=== PATIENT | female | born 1960 | race Two or more races ===

== ENCOUNTER → 2020-06-18 | Outpatient (CLI) | payer OTHER ==
[~2020-06-18] MED LIST: IOHEXOL 300 MG/ML 100ML VIAL. IV ONE
[2020-06-18 11:13] LABS: CREATININE 0.6 mg/dL (0.6-1.0); GFR 102.7
--- NOTE | 2020-06-18 16:32 | RAD ---
Examination: CT CHEST AND ABDOMEN WO/W History: hepatic lesion / Spl. Instructions: omni 300 75ml / Comparison/Correlation: None Findings: Axial images of the chest and abdomen were obtained following IV contrast. Precontrast axial images of the abdomen were also obtained. Postcontrast images include arterial phase, portal venous phase, and delayed hepatic venous phase series. The tracheobronchial tree is unremarkable. No infiltrates or effusions. No suspicious pulmonary nodules. No enlarged thoracic lymph nodes. Thoracic aortic morphology is grossly unremarkable. No pleural or pericardial effusion. Mild diffuse fatty infiltration of the liver is present. There is no suspicious hepatic focal lesion identified. Mild reflux of contrast into the hepatic veins is noted on arterial phase images and is nonspecific. Gallbladder fossa is unremarkable. Spleen, pancreas, and adrenal glands are normal. No enlarged upper abdominal lymph nodes. Right renal upper pole 0.45 cm diameter calyceal calculus is present. At the mid to lower pole level, 0.4 cm diameter calculus is present. Smaller additional punctate calyceal calculi are present at the inferior pole. Left renal upper pole 0.2 cm diameter nonobstructing calyceal calculus is present. Few punctate inferior pole left renal calyceal calculi are present. Diverticulosis of the visualized colon is seen. Upper abdominal aortic diameter is unremarkable. Celiac artery is widely patent. Less than 30 percent stenosis of the proximal superior mesenteric artery appears to be present. Inferior mesenteric artery is probably unremarkable. Bilateral main renal arteries are unremarkable. Impression: No suspicious hepatic lesion identified. Fatty infiltration of the liver is present. Nonobstructive bilateral renal calyceal calculi. No infiltrate. PQRS Compliance Statement: One or more of the following individualized dose reduction techniques were utilized for this examination: 1. Automated exposure control 2. Adjustment of the mA and/or kV according to patient size 3. Use of iterative reconstruction technique Electronically signed by: Braxton Pro MD (06/18/2020 4:29 PM) [id number]
== END ==
LOC: CT 10:13
PROVIDERS: ATTEND Physician Assistant Medical
DX: N20.0 Calculus of kidney (principal); K76.0 Fatty (change of) liver, not elsewhere classified; G89.29 Other chronic pain
CPT/HCPCS: 36415; 71270; 74170; 82565; Q9967

== ENCOUNTER 2021-03-29 15:29 | Inpatient (IN) | payer SELFPAY ==
[~2021-03-29] VITALS: Ht 154.9 cm; Wt 100.0 kg
[2021-03-29] MEDS ORDERED: ACETAMINOPHEN 500 MG TABLET PO ONE ×2 (19:15→20:30)
[2021-03-29] MEDS ORDERED: IBUPROFEN 200 MG TABLET. PO ONE (19:15)
--- NOTE | 2021-03-29 19:34 | RAD ---
XR CHEST 1V INDICATION: Chest pain, PUI, hypoxia. COMPARISON STUDY: None. FINDINGS: Lungs: Normal lung volume. Bilateral perihilar and basilar opacities. The tracheobronchial tree and h ilar structures are normal. Pleura: No pleural effusion or pneumothorax. Heart and Mediastinum: Cardiomegaly. Tortuosity of the thoracic aorta. IMPRESSION: Bilateral perihilar and basilar opacities, which could represent edema or multifocal infection. Electronically signed by: Allan Salgado MD (03/29/2021 7:32 PM) [facility]
--- NOTE | 2021-03-29 20:18 | EKG ---
[facility] [address] [place] [address] Test Date: 2021-03-29 Test Time: 19:25:11 Pat Name: ZE DALY Department: Room: Gender: F Plant Maintenance Engineer: : 1960 Requested By: MARCELINO DALY Order Number: [id number] Reading MD: Measurements Intervals [place] Rate: 59 P: 37 MA: 122 QRS: 48 QRSD: 84 T: 81 QT: 398 QTc: 398 Interpretive Statements SINUS RHYTHM NORMAL ECG RI6.02 No previous ECG available for comparison
[2021-03-29] MEDS ORDERED: AZITHROMYCIN 250 MG TABLET. PO ONE (20:30)
[2021-03-29] MEDS ORDERED: KETOROLAC 30 MG/ML VIAL. IVP ONE (20:30)
--- NOTE | 2021-03-29 20:30 | PHYS DOC ---
Past Medical History Past Surgical History: No Surgical History (MARCELINO DALY APRN) General Adult EDM: Chief Complaint: SHORTNESS OF BREATH HPI: HPI: Patient is a 60 Female presents to the emergency department complaining of a 1 week history of chest pains, shortness of breath, upper back pain. Patient denies nausea vomiting or diarrhea. Patient denies loss of taste or loss of smell. Patient reports off-and-on diaphoretic episodes at home, has not taken her temperature is not sure of fever but does complain of chills and generalized malaise. Patient denies any increased urination or increased thirst, denies burning with urination, urinary frequency, or other urinary tract infection type signs and symptoms. Patient denies headaches or visual disturbances. Patient denies receiving the Covid vaccine virus vaccination series. Patient denies allergies to medications, denies taken prescription medications at home. Patient denies any other physical complaints or physical concerns. Patient reports no one else living in her home was having same symptoms as she. Patient denies smoking cigarettes, occasional alcohol drinker, denies illicit drug use. (MARCELINO DALY APRN) Review of Systems: Review of Systems: 14 body systems of review of systems have been reviewed. See HPI for pertinent positives and negative responses, otherwise all other systems are negative, nonpertinent or noncontributory. Constitutional: Negative except as outlined in HPI above. Skin: Negative except as outlined in HPI above. Eyes: Negative except as outlined in HPI above. HENT: Negative except as outlined in HPI above. Respiratory: Negative except as outlined in HPI above. Cardiovascular: Negative except as outlined in HPI above. GI: Negative except as outlined in HPI above. : Negative except as outlined in HPI above. Musculoskeletal: Negative except as outlined in HPI above. Integument: Negative except as outlined in HPI above. Neurologic: Negative except as outlined in HPI above. Endocrine: Negative except as outlined in HPI above. Lymphatic: Negative except as outlined in HPI above. Psychiatric: Negative except as outlined in HPI above. (MARCELINO DALY APRN) Heart Score: C/O Chest Pain: Yes HEART Score for Chest Pain: HEART Score for Chest Pain Response (Comments) Value History Slighlty/Non-Suspicious 0 ECG Normal 0 Age >45 - < 65 1 Risk Factors No Risk Factors 0 Troponin < Normal Limit 0 Total 1 Risk Factors: Risk Factors: DM, Current or recent (<one month) smoker, HTN, HLP, family history of CAD, obesity. Risk Scores: Score 0 - 3: 2.5% MACE over next 6 weeks - Discharge Home Score 4 - 6: 20.3% MACE over next 6 weeks - Admit for Clinical Observation Score 7 - 10: 72.7% MACE over next 6 weeks - Early Invasive Strategies (MARCELINO DALY APRN) Current Medications: Current Medications Medications (Trade) Dose Ordered Sig/Cassidy Start Time Stop Time Status Last Admin Dose Admin Acetaminophen (Tylenol) 1,000 mg 1X ONCE 03/29/21 19:15 03/29/21 19:22 DC Ibuprofen (Motrin) 600 mg 1X ONCE 03/29/21 19:15 03/29/21 19:22 DC (MARCELINO DALY APRN) Allergies: Allergies: Allergies Coded Allergies Type Severity Reaction Last Updated Verified No Known Drug Allergies 06/18/20 No (MARCELINO DALY APRN) Physical Exam: PE: Constitutional: Well developed, well nourished, no acute distress, non-toxic appearance. 60-year-old female in no apparent distress. HENT: Normocephalic, atraumatic. No lymphadenopathy of the head and neck appreciated, oropharynx moist, pink, no deep tissue infectious process appreciated, no drooling, no trismus. Bilateral TMs within normal limits. Eyes: Conjunctiva normal, no discharge. Neck: Normal range of motion, no stridor. No meningismus signs, no nuchal rigidity. Cardiovascular: No cyanosis appreciated, distal cap refill less than 2 seconds. Heart sounds S1-S2 to auscultation. No tenderness to palpation of the anterior thorax. Lungs & Thorax: Patient is in no respiratory distress, no audible adventitious lung sounds appreciated. Lung sounds diminished bilateral bases otherwise no adventitious lung sounds appreciated per auscultation. Patient is not tachypneic. Patient's room air O2 sat upon arrival to room was 88%, patient placed on 2 L per nasal cannula. Abdomen: Nontender, no abnormalities noted. Skin: Warm, dry, no erythema, no rash. Back: No tenderness, no deformities. No midline spinal tenderness, no bruising appreciated. Extremities: No tenderness, no cyanosis, no clubbing, ROM intact, no edema. Neurologic: Alert and oriented X 3, normal motor function, normal sensory function, no focal deficits noted. Psychologic: Affect normal, judgement normal, mood normal. (MARCELINO DALY APRN) Current Patient Data: Vital Signs: Vital Signs Date Time Temp Pulse Resp B/P (MAP) Pulse Ox O2 Delivery O2 Flow Rate FiO2 03/29/21 18:48 100.5 69 19 180/90 95 Room Air 100.5 (MARCELINO DALY APRN) EKG: EKG: EKG performed at 1925 by ED nursing staff shows normal sinus rhythm without ectopy heart rate 59 bpm, AL interval 0.122, QTc interval 0.398, no acute STEMI, no ACS, no acute ischemia appreciated, EKG interpreted by ED attending physician Dr. Nicholsno. (MARCELINO DALY APRN) Radiology/Procedures: Radiology/Procedures: PATIENT: LLOYD DALYCOUNT: [id number] : 1960 LOCATION: ER AGE: 60 SEX: F EXAM STATUS: REG ER ORD. PHYSICIAN: MARCELINO DALY APRN REASON: Chest pain, PUI, hypoxia PROCEDURE: CHEST AP ONLY XR CHEST 1V INDICATION: Chest pain, PUI, hypoxia. COMPARISON STUDY: None. FINDINGS: Lungs: Normal lung volume. Bilateral perihilar and basilar opacities. The tr acheobronchial tree and hilar structures are normal. Pleura: No pleural effusion or pneumothorax. Heart and Mediastinum: Cardiomegaly. Tortuosity of the thoracic aorta. IMPRESSION: Bilateral perihilar and basilar opacities, which could represent edema or multifocal infection. PROCEDURE: CT ANGIOGRAPHY CHEST CTA CHEST INDICATION: Chest pain with shortness of breath pE study. Comparison: Radiograph 03/29/2021. TECHNIQUE: Following the uneventful administration of intravenous contrast, 100 cc Omnipaque 350, axial CT sections were obtained through the lungs and upper abdomen. Multiplanar reconstructions and MIP images were obtained. PQRS compliance statement: One or more of the following individualized dose reduction techniques were utilized for this examination: 1. Automated exposure control 2. Adjustment of the mA and/or kV according to patient size 3. Use of iterative reconstruction technique FINDINGS: Pulmonary arteries: No evidence of pulmonary thromboembolic disease. Lungs and Airways: Patchy bilateral consolidations. No abnormality of the central airways. Pleura: The pleural spaces are normal. Heart and Mediastinum: The visualized thyroid is normal in size and attenuation. No axillary or supraclavicular lymphadenopathy. No mediastinal, hilar or retrocrural lymphadenopathy. Cardiomegaly. No pericardial effusion. Normal caliber thoracic aorta. Abdomen: Limited images through the upper abdomen show no abnormality of the visualized organs. Bones and Soft Tissues: The visualized bones and chest wall soft tissues are within normal limits. IMPRESSION: 1. No evidence of pulmonary thromboembolic disease. 2. Patchy bilateral consolidations, likely multifocal infection or edema. Electronically signed by: Allan Salgado MD (03/29/2021 10:40 PM) [facility]) Course & Med Decision Making: Course & Med Decision Making Pertinent Labs and Imaging studies reviewed. (See chart for details) 60-year-old female, vital signs reviewed, presents to the emergency department concerning shortness of breath, chest pain, upper back pain concerning she may have COVID-19 virus. Patient's physical examination concerning for cardiorespiratory process versus viral syndrome versus COVID-19 virus infection. ED work-up includes cardiorespiratory work-up, urinalysis assay, COVID-19 virus testing, blood cultures x2. Will most likely admit related to patient's hypoxemia. Patient's chest x-ray concerning for atypical pneumonia, related to hypoxemia and chest pain will order CT angio chest. Patient's EKG within normal limits, troponin negative, HEART score equals 1. Patient started on 500 mg Zithromax p.o., p.o. Tylenol and IV Toradol given for body aches and chest pain. Discussed with patient recommended CT angio chest to rule out pulmonary embolus, patient is amenable to the ED planning and work-up. 2 g Rocephin IV ordered, EMRA recommendation of 2 g Rocephin consideration for patient's [address] angio chest negative for acute pulmonary emboli, discussed admission recommendation with patient related to atypical pneumonia, hypoxemia, PUI for CO VID-19, patient is amendable to being admitted. Discussed patient case and ER work-up with ED attending physician Dr. Nicholson who agrees patient's ER presentation and work-up warrants admission to the hospital, patient will be admitted under hospitalist Dr. Adonis Zapien to the medical surgical unit related to PUI status. Dr. Nicholson will assume patient care and advise Dr. Zapien of admission in morning for hospital policy. Patient remains on 2 L per nasal cannula related to hypoxemia, first round of antibiotics for pneumonia given, blood cultures are pending. (MARCELINO DALY APRN) Dragon Disclaimer: Dragon Disclaimer: This electronic medical record was generated, in whole or in part, using a voice recognition dictation system. (MARCELINO DALY APRN) Departure Departure Impression: Primary Impression: Person under investigation for COVID-19 Additional Impressions: Hypoxia Atypical pneumonia Disposition: ADMITTED INPATIENT Admitting Physician: HIMDevang (Admitted to Dr. Zapien to med telemetry unit) (MARCELINO DALY APRN) Condition: STABLE Referrals: NO PCP (PCP) MARCELINO DALY APRN Mar 29, 2021 20:30 KAYLIE NICHOLSON MD Mar 30, 2021 05:49
[2021-03-29 20:48] LABS: BILIRUBIN,URINE NEGATIVE (NEG); CLARITY,URINE CLEAR; COLOR,URINE YELLOW; NITRITE,URINE NEGATIVE (NEG); PH,URINE 6.5 (<5.0-8.0); PROTEIN,URINE 100 mg/dL (NEG-TRACE)
[2021-03-29 20:50] LABS: BASO % 0 % (0-3); EOS % 0 % (0-3); HEMATOCRIT 40.2 % (36.0-47.0); HEMOGLOBIN 13.7 g/dL (12.0-15.5); LYMPH # 1.3 x10^3/uL (1.0-4.8); LYMPH % 19 % (24-48); MEAN CORPUSCULAR HEMOGLOBIN 30 pg (25-35); MEAN CORPUSCULAR HGB CONC 34 g/dL (31-37); MEAN CORPUSCULAR VOLUME 89 fL (79-100); MONO # 0.3 x10^3/uL (0.0-1.1); MONO % 5 % (0-9); NEUT # 5.1 x10^3/uL (1.8-7.7); NEUT % 76 % (31-73); PLATELET COUNT 313 x10^3/uL (140-400); RED BLOOD COUNT 4.54 x10^6/uL (3.50-5.40); RED CELL DISTRIBUTION WIDTH 13.9 % (11.5-14.5); WHITE BLOOD COUNT 6.7 x10^3/uL (4.0-11.0)
[2021-03-29 20:56] LABS: BACTERIA,URINE 0 /HPF (0-FEW); RBC,URINE OCC /HPF (0-2); WBC,URINE 0 /HPF (0-4)
[2021-03-29 21:00] LABS: CALCIUM 9.1 mg/dL (8.5-10.1); CREATININE 0.7 mg/dL (0.6-1.0); GFR 85.6; POTASSIUM 3.9 mmol/L (3.5-5.1)
[2021-03-29 21:06] LABS: ALBUMIN 2.7 g/dL (3.4-5.0); ALBUMIN/GLOBULIN RATIO 0.5 (1.0-1.7); MAGNESIUM 2.4 mg/dL (1.8-2.4); PHOSPHORUS 3.4 mg/dL (2.6-4.7); TOTAL BILIRUBIN 0.5 mg/dL (0.2-1.0); TOTAL PROTEIN 8.2 g/dL (6.4-8.2)
[2021-03-29 21:16] LABS: CREATINE KINASE 60 U/L (26-192)
[2021-03-29] MEDS ORDERED: AMOXICILLIN 250 MG CAPSULE. PO ONE (21:30)
[2021-03-29] MEDS ORDERED: IOHEXOL 350 MG/ML 100 ML VIAL. IV ONE (22:15)
[2021-03-29] MEDS ORDERED: CONTRAST GIVEN. MC PRN (22:15)
[2021-03-29] MEDS ORDERED: cefTRIAXone IV Push 2 GM VIAL. IVP ONE (22:30)
--- NOTE | 2021-03-29 22:42 | RAD ---
CTA CHEST INDICATION: Chest pain with shortness of breath pE study. Comparison: Radiograph 03/29/2021. TECHNIQUE: Following the uneventful administration of intravenous contrast, 100 cc Omnipaque 350, axi al CT sections were obtained through the lungs and upper abdomen. Multiplanar reconstructions and MIP images were obtained. PQRS compliance statement: One or more of the following individualized dose reduction techniques were utilized for this examinat ion: 1. Automated exposure control 2. Adjustment of the mA and/or kV according to patient size 3. Use of iterative reconstruction technique FINDINGS: Pulmonary arteries: No evidence of pulmonary thromboembolic disease. Lungs and Airways: Patchy bilateral consolidations. No abnormality of the central airways. Pleura: The pleural spaces are normal. Heart and Mediastinum: The visualized thyroid is normal in size and attenuation. No axillary or supra clavicular lymphadenopathy. No mediastinal, hilar or retrocrural lymphadenopathy. Cardiomegaly. No pe ricardial effusion. Normal caliber thoracic aorta. Abdomen: Limited images through the upper abdomen show no abnormality of the visualized organs. Bones and Soft Tissues: The visualized bones and chest wall soft tissues are within normal limits. IMPRESSION: 1. No evidence of pulmonary thromboembolic disease. 2. Patchy bilateral consolidations, likely multifocal infection or edema. Electronically signed by: Allan Salgado MD (03/29/2021 10:40 PM) [facility]
[2021-03-30] MEDS ORDERED: ELECTROLYTE (NON-ICU) PROTOCOL. MC PRN (11:00)
[2021-03-30] MEDS ORDERED: oxyCODONE/APAP 5/325 1 TAB TABLET PO PRN ×2 (11:00)
[2021-03-30] MEDS ORDERED: CALCIUM CARBONATE 500 MG TAB.CHEW PO PRN (11:00)
[2021-03-30] MEDS ORDERED: ONDANSETRON PF 4 MG/2 ML VIAL. IVP PRN (11:00)
[2021-03-30] MEDS ORDERED: ACETAMINOPHEN 325 MG TABLET. PO PRN (11:00)
[2021-03-30] MEDS ORDERED: ZOLPIDEM 5 MG TABLET. PO PRN (11:00)
[2021-03-30] MEDS ORDERED: AZITHROMYCIN 250 MG TABLET. PO ONE (11:15)
[2021-03-30] MEDS ORDERED: PIP/TAZO PER PHARMACY MC PRN (11:15)
[2021-03-30] MEDS: DEXAMETHASONE SOD PHOS 4 MG/ML VIAL IVP SCH (11:47)
[2021-03-30] MEDS: IPRATROPIUM/ALBUTEROL 20/100mcg/INH INHALER. INH PRN (11:50)
[2021-03-30] MEDS: PIPERACILLIN/TAZOBACTAM 3.375 GM in IV NORMAL SALINE 50ML 50 ML IV SCH ×3 (12:25→23:32)
[2021-03-30] MEDS: SENNOSIDES/DOCUSATE 8.6/50MG TABLET. PO SCH ×2 (12:37→21:08)
[2021-03-30] MEDS: HEPARIN for SUB-Q USE 5,000 UNIT/ML VIAL. SQ SCH ×2 (12:40→21:10)
--- NOTE | 2021-03-30 14:29 | PDOC1 ---
History and Physical Date of Service: DOS: DATE: 03/30/21 TIME: 14:19 Chief Complaint: Problems: (1) COVID-19 Chief Complain: Shortness of breath History of Present Illness: HPI: Patient is a 60-year-old female presented to the emergency department overnight due to shortness of breath and back pain. Patient reports the symptoms have been going on for about a week. Patient does not speak Ethiopian. Uncertain if she has had a fever but has had chills at home and overall fatigue. Does not know any Covid contacts. Did not receive Covid vaccine. Covid positive in emergency room. Lab work in emergency room overall unremarkable other than Covid positive. CT scan emergency room ruled out pulmonary embolism. However findings consistent with infiltrate. Past Medical/Surgical History: PMH/PSH: Benign hepatic mass Allergies: Allergies: Coded Allergies: No Known Drug Allergies (Unverified , 06/18/20) Family History: Family History: No known Social History: Social History: Denies alcohol tobacco or drug use Current Medications: Current Medications Current Medications Acetaminophen (Tylenol) 1,000 mg 1X ONCE PO Last administered on 03/29/21at 20:58; Start 03/29/21 at 19:15; Stop 03/29/21 at 19:22; Status DC Ibuprofen (Motrin) 600 mg 1X ONCE PO ; Start 03/29/21 at 19:15; Stop 03/29/21 at 19:22; Status DC Azithromycin (Zithromax) 500 mg 1X ONCE PO Last administered on 03/29/21at 20:58; Start 03/29/21 at 20:30; Stop 03/29/21 at 20:31; Status DC Ketorolac Tromethamine (Toradol 30mg Vial) 30 mg 1X ONCE IVP Last administered on 03/29/21at 20:58; Start 03/29/21 at 20:30; Stop 03/29/21 at 20:31; Status DC Acetaminophen (Tylenol) 1,000 mg 1X ONCE PO ; Start 03/29/21 at 20:30; Stop 03/29/21 at 20:53; Status DC Amoxicillin (Amoxil) 1,000 mg 1X ONCE PO ; Start 03/29/21 at 21:30; Stop 03/29/21 at 21:34; Status DC Iohexol (Omnipaque 350 Mg/ml) 100 ml 1X ONCE IV Last administered on 03/29/21at 22:35; Start 03/29/21 at 22:15; Stop 03/29/21 at 22:16; Status DC Info (CONTRAST GIVEN -- Rx MONITORING) 1 each PRN DAILY PRN MC SEE COMMENTS; Start 03/29/21 at 22:15; Stop 03/31/21 at 22:14 Ceftriaxone Sodium (Rocephin) 2 gm 1X ONCE IVP Last administered on 03/29/21at 23:03; Start 03/29/21 at 22:30; Stop 03/29/21 at 22:31; Status DC Ondansetron HCl (Zofran) 4 mg PRN Q6HRS PRN IVP NAUSEA/VOMITING; Start 03/30/21 at 11:00 Calcium Carbonate/ Glycine (Tums) 500 mg PRN Q3HRS PRN PO UPSET STOMACH; Start 03/30/21 at 11:00 Zolpidem Tartrate (Ambien) 5 mg PRN QHS PRN PO INSOMNIA, MAY REPEAT IN 1HR; Start 03/30/21 at 11:00 Info (Non-Icu Electrolyte Protocol) 1 ea PRN DAILY PRN MC SEE COMMENTS; Start 03/30/21 at 11:00 Oxycodone/ Acetaminophen (Percocet 5/325) 1 tab PRN Q4HRS PRN PO MILD PAIN, 1ST CHOICE; Start 03/30/21 at 11:00 Oxycodone/ Acetaminophen (Percocet 5/325) 2 tab PRN Q4HRS PRN PO MODERATE PAIN, SEVERE PAIN; Start 03/30/21 at 11:00 Acetaminophen (Tylenol) 650 mg PRN Q6HRS PRN PO Headaches, Temp > 101.5F; Start 03/30/21 at 11:00 Senna/Docusate Sodium (Senna Plus) 1 tab BID PO Last administered on 03/30/21at 12:37; Start 03/30/21 at 12:00 Heparin Sodium (Porcine) (Heparin Sodium) 5,000 unit Q8HRS SQ Last administered on 03/30/21at 12:40; Start 03/30/21 at 12:00 Dexamethasone Sodium Phosphate (Decadron) 6 mg DAILY IVP Last administered on 03/30/21at 11:47; Start 03/30/21 at 11:15 Piperacillin Sod/ Tazobactam Sod (Zosyn Per Pharmacy) 1 each PRN DAILY PRN MC SEE COMMENTS; Start 03/30/21 at 11:15 Guaifenesin/ Codeine Phosphate (Robitussin Ac) 5 ml PRN Q6HRS PRN PO COUGH; Start 03/30/21 at 11:15 Azithromycin (Zithromax) 500 mg 1X ONCE PO Last administered on 03/30/21at 11:48; Start 03/30/21 at 11:15; Stop 03/30/21 at 11:27; Status DC Azithromycin (Zithromax) 250 mg DAILY PO ; Start 03/31/21 at 09:00 Albuterol/ Ipratropium (Combivent Respimat 20-100 Mcg) 2 puff PRN Q4HRS PRN INH WHEEZING Last administered on 03/30/21at 11:50; Start 03/30/21 at 11:30 Piperacillin Sod/ Tazobactam Sod 3.375 gm/Sodium Chloride 50 ml @ 100 mls/hr Q6HRS IV Last administered on 03/30/21at 12:25; Start 03/30/21 at 12:00 ROS: Review of Systems Review of System Negative unless noted in HPI Physical Exam: Vital Signs: Vital Signs Date Time Temp Pulse Resp B/P (MAP) Pulse Ox O2 Delivery O2 Flow Rate FiO2 03/30/21 12:15 65 21 144/67 (92) 95 Nasal Cannula 3.5 03/29/21 18:48 100.5 100.5 Physcial Exam: GEN: Mild distress HEENT: Normal cephalic, atraumatic, external auditory canals are patent EYES: Extraocular muscles are intact, pupil are equally round and reactive to light and accommodation MUSCULOSKELETAL: Well developed , well nourished, good range of motion ENDOCRINE: No thyromegaly was palpated LYMPHATICS: No cervical chain or axillary nodes were noted HEMATOPOIETIC: No bruising NECK: Supple, no JVD, no thyromegaly was noted LUNGS: On nasal cannula, coarse breath sounds. HEART: RRR, S1, S2 present. Peripheral pulses intact, no obvious murmurs noted ABDOMEN: Soft, nontender. Positive bowel sounds, no organomegaly, normal bowel sounds EXTREMITIES: Without clubbing, cyanosis, or edema. Pedal pulses intact. Negative Homans sign NEUROLOGIC: Normal speech and tone. A&O x 3, moves all extremities, no obvious focal deficits PSYCHIATRIC: Normal affect, normal mood. Stable SKIN: No ulcerations or rashes, good skin turgor, no jaundice VASCULAR: Good capillary refill, neurovascular bundle appears to be intact Labs: Labs: Laboratory Tests Test 03/29/21 20:30 03/29/21 20:34 03/29/21 22:00 White Blood Count 6.7 x10^3/uL (4.0-11.0) Red Blood Count 4.54 x10^6/uL (3.50-5.40) Hemoglobin 13.7 g/dL (12.0-15.5) Hematocrit 40.2 % (36.0-47.0) Mean Corpuscular Volume 89 fL (79-100) Mean Corpuscular Hemoglobin 30 pg (25-35) Mean Corpuscular Hemoglobin Concent 34 g/dL (31-37) Red Cell Distribution Width 13.9 % (11.5-14.5) Platelet Count 313 x10^3/uL (140-400) Neutrophils (%) (Auto) 76 % (31-73) Lymphocytes (%) (Auto) 19 % (24-48) Monocytes (%) (Auto) 5 % (0-9) Eosinophils (%) (Auto) 0 % (0-3) Basophils (%) (Auto) 0 % (0-3) Neutrophils # (Auto) 5.1 x10^3/uL (1.8-7.7) Lymphocytes # (Auto) 1.3 x10^3/uL (1.0-4.8) Monocytes # (Auto) 0.3 x10^3/uL (0.0-1.1) Eosinophils # (Auto) 0.0 x10^3/uL (0.0-0.7) Basophils # (Auto) 0.0 x10^3/uL (0.0-0.2) Urine Collection Type Void Urine Color Yellow Urine Clarity Clear Urine pH 6.5 (<5.0-8.0) Urine Specific [place] 1.015 (1.000-1.030) Urine Protein 100 mg/dL (NEG-TRACE) Urine Glucose (UA) Negative mg/dL (NEG) Urine Ketones (Stick) Negative mg/dL (NEG) Urine Blood Negative (NEG) Urine Nitrite Negative (NEG) Urine Bilirubin Negative (NEG) Urine Urobilinogen Dipstick 1.0 mg/dL (0.2 mg/dL) Urine Leukocyte Esterase Negative (NEG) Urine RBC Occ /HPF (0-2) Urine WBC 0 /HPF (0-4) Urine Squamous Epithelial Cells Few /LPF Urine Bacteria 0 /HPF (0-FEW) Urine Mucus Slight /LPF Sodium Level 140 mmol/L (136-145) Potassium Level 3.9 mmol/L (3.5-5.1) Chloride Level 103 mmol/L (98-107) Carbon Dioxide Level 29 mmol/L (21-32) Anion Gap 8 (6-14) Blood Urea Nitrogen 6 mg/dL (7-20) Creatinine 0.7 mg/dL (0.6-1.0) Estimated GFR (Cockcroft-Gault) 85.6 BUN/Creatinine Ratio 9 (6-20) Glucose Level 129 mg/dL (70-99) Lactic Acid Level 0.8 mmol/L (0.4-2.0) Calcium Level 9.1 mg/dL (8.5-10.1) Phosphorus Level 3.4 mg/dL (2.6-4.7) Magnesium Level 2.4 mg/dL (1.8-2.4) Total Bilirubin 0.5 mg/dL (0.2-1.0) Aspartate Amino Transf (AST/SGOT) 109 U/L (15-37) Alanine Aminotransferase (ALT/SGPT) 99 U/L (14-59) Alkaline Phosphatase 140 U/L (46-116) Creatine Kinase 60 U/L (26-192) Creatine Kinase MB (Mass) < 0.5 ng/mL (0.0-3.6) Creatine Kinase MB Relative Index % (0-4) Troponin I Quantitative < 0.017 ng/mL (0.000-0.055) HY-Eej-V-Type Natriuretic Peptide 197 pg/mL (0-124) Total Protein 8.2 g/dL (6.4-8.2) Albumin 2.7 g/dL (3.4-5.0) Albumin/Globulin Ratio 0.5 (1.0-1.7) SARS-CoV-2 RNA (KATJA) Positive (Negative) D-Dimer (Sissy) 0.49 ug/mlFEU (0.00-0.50) Laboratory Tests Test 03/29/21 20:30 03/29/21 20:34 03/29/21 22:00 White Blood Count 6.7 x10^3/uL (4.0-11.0) Red Blood Count 4.54 x10^6/uL (3.50-5.40) Hemoglobin 13.7 g/dL (12.0-15.5) Hematocrit 40.2 % (36.0-47.0) Mean Corpuscular Volume 89 fL (79-100) Mean Corpuscular Hemoglobin 30 pg (25-35) Mean Corpuscular Hemoglobin Concent 34 g/dL (31-37) Red Cell Distribution Width 13.9 % (11.5-14.5) Platelet Count 313 x10^3/uL (140-400) Neutrophils (%) (Auto) 76 % (31-73) Lymphocytes (%) (Auto) 19 % (24-48) Monocytes (%) (Auto) 5 % (0-9) Eosinophils (%) (Auto) 0 % (0-3) Basophils (%) (Auto) 0 % (0-3) Neutrophils # (Auto) 5.1 x10^3/uL (1.8-7.7) Lymphocytes # (Auto) 1.3 x10^3/uL (1.0-4.8) Monocytes # (Auto) 0.3 x10^3/uL (0.0-1.1) Eosinophils # (Auto) 0.0 x10^3/uL (0.0-0.7) Basophils # (Auto) 0.0 x10^3/uL (0.0-0.2) Urine Collection Type Void Urine Color Yellow Urine Clarity Clear Urine pH 6.5 (<5.0-8.0) Urine Specific [place] 1.015 (1.000-1.030) Urine Protein 100 mg/dL (NEG-TRACE) Urine Glucose (UA) Negative mg/dL (NEG) Urine Ketones (Stick) Negative mg/dL (NEG) Urine Blood Negative (NEG) Urine Nitrite Negative (NEG) Urine Bilirubin Negative (NEG) Urine Urobilinogen Dipstick 1.0 mg/dL (0.2 mg/dL) Urine Leukocyte Esterase Negative (NEG) Urine RBC Occ /HPF (0-2) Urine WBC 0 /HPF (0-4) Urine Squamous Epithelial Cells Few /LPF Urine Bacteria 0 /HPF (0-FEW) Urine Mucus Slight /LPF Sodium Level 140 mmol/L (136-145) Potassium Level 3.9 mmol/L (3.5-5.1) Chloride Level 103 mmol/L (98-107) Carbon Dioxide Level 29 mmol/L (21-32) Anion Gap 8 (6-14) Blood Urea Nitrogen 6 mg/dL (7-20) Creatinine 0.7 mg/dL (0.6-1.0) Estimated GFR (Cockcroft-Gault) 85.6 BUN/Creatinine Ratio 9 (6-20) Glucose Level 129 mg/dL (70-99) Lactic Acid Level 0.8 mmol/L (0.4-2.0) Calcium Level 9.1 mg/dL (8.5-10.1) Phosphorus Level 3.4 mg/dL (2.6-4.7) Magnesium Level 2.4 mg/dL (1.8-2.4) Total Bilirubin 0.5 mg/dL (0.2-1.0) Aspartate Amino Transf (AST/SGOT) 109 U/L (15-37) Alanine Aminotransferase (ALT/SGPT) 99 U/L (14-59) Alkaline Phosphatase 140 U/L (46-116) Creatine Kinase 60 U/L (26-192) Creatine Kinase MB (Mass) < 0.5 ng/mL (0.0-3.6) Creatine Kinase MB Relative Index % (0-4) Troponin I Quantitative < 0.017 ng/mL (0.000-0.055) EB-Ptm-W-Type Natriuretic Peptide 197 pg/mL (0-124) Total Protein 8.2 g/dL (6.4-8.2) Albumin 2.7 g/dL (3.4-5.0) Albumin/Globulin Ratio 0.5 (1.0-1.7) SARS-CoV-2 RNA (KATJA) Positive (Negative) D-Dimer (Sissy) 0.49 ug/mlFEU (0.00-0.50) Assessment/Plan Assessment/Plan Patient 60-year-old female presenting due to COVID-19 infection. Pneumonia secondary to COVID-19 with possible superimposed bacterial pneumonia -1 week history for respiratory symptoms; also having diarrhea -No known Covid contacts although never vaccinated either -Covid positive in emergency room. -Requiring 3 L nasal cannula -Covid protocol started; due to oxygen requirement starting remdesivir -Due to very heavy patient load will hold off pulmonary consult unless complications develop -DVT prophylaxis -Regular diet Justifications for Admission Other Justification LYUBOV CASILLAS MD Mar 30, 2021 14:29
[2021-03-30 15:00] VITALS: BP 149/56
[2021-03-30] MEDS ORDERED: REMDESIVIR LOAD in IV NORMAL SALINE 250ML TV IV ONE (15:00)
[2021-03-30 19:00] VITALS: BP 154/53
[2021-03-30 23:00] VITALS: BP 159/62
[2021-03-31 03:00] VITALS: BP 147/57
[2021-03-31] MEDS: PIPERACILLIN/TAZOBACTAM 3.375 GM in IV NORMAL SALINE 50ML 50 ML IV SCH ×3 (05:37→18:16)
[2021-03-31] MEDS: HEPARIN for SUB-Q USE 5,000 UNIT/ML VIAL. SQ SCH ×3 (05:38→20:21)
[2021-03-31 07:30] VITALS: BP 120/54
[2021-03-31] MEDS: AZITHROMYCIN 250 MG TABLET. PO SCH (08:55)
[2021-03-31] MEDS: DEXAMETHASONE SOD PHOS 4 MG/ML VIAL IVP SCH (08:55)
[2021-03-31] MEDS: SENNOSIDES/DOCUSATE 8.6/50MG TABLET. PO SCH ×2 (08:55→20:19)
[2021-03-31] MEDS: guaiFENesin/CODEINE 100mg/10mg 5 ML LIQUID PO PRN (08:56)
[2021-03-31] MEDS: IPRATROPIUM/ALBUTEROL 20/100mcg/INH INHALER. INH PRN ×2 (11:07→15:00)
[2021-03-31 11:30] VITALS: BP 139/64
--- NOTE | 2021-03-31 12:28 | PDOC ---
[employer] PROGRESS NOTE Date of Service DOS: DATE: 03/31/21 TIME: 12:12 Chief Complaint Chief Complaint COVID-19 Infection (experienced shortness of breath) Pneumonia secondary to COVID-19 with possible superimposed bacterial pneumonia Benign hepatic mass History of Present Illness History of Present Illness Patient is a 60-year-old female presented to the emergency department overnight due to shortness of breath and back pain. Patient reports respiratory symptoms have been going on for about a week, she also endorses having diarrhea. Patient does not speak Kuwaiti. Uncertain if she has had a fever but has had chills at home and overall fatigue. Does not know any Covid contacts. Did not receive Covid vaccine. Covid positive in emergency room. Required 3L O2 per nasal haily sumit in the ED. Lab work in emergency room overall unremarkable other than Covid positive. CT scan emergency room ruled out pulmonary embolism. However findings consistent with infiltrate. 03/31: Patient seen and examined. Blood pressure has been elevated since admission (144/67-173/79). Respiration rate has also been elevated (18-32). Discussed with RN. CHart reviewed. Vitals/I&O Vitals/I&O: Vital Signs Date Time Temp Pulse Resp B/P (MAP) Pulse Ox O2 Delivery O2 Flow Rate FiO2 03/31/21 11:30 98.0 54 20 139/64 (89) 94 Nasal Cannula 4.5 98.0 I & O 03/30/21 03/30/21 03/31/21 15:00 23:00 07:00 Intake Total 50 ml 250 ml 100 ml Balance 50 ml 250 ml 100 ml Physical Exam General: mild distress Heart: Regular rate, Normal S1, Normal S2 Lungs: Other (Coarse breath sounds) Abdomen: Normal bowel sounds Extremities: No clubbing, No cyanosis Skin: No rashes Review of Systems Review of Systems: Patient endorses weakness and muscle pain. Assessment and Plan Assessmemt and Plan Assessment: COVID-19 Infection (Experienced shortness of breath) Pneumonia secondary to COVID-19 with possible superimposed bacterial pneumonia Benign hepatic mass Plan: 1. Continue COVID-19 Protocol (Remdesivir, azithromycin, zosyn, Robitussin, dexamethasone, O2 per nasal cannula) 2. Add multivitamin to COVID protocol 3. Add aspirin to COVID protocol 4. Start Norvasc 5mg PO Q.D. (for HTN) 5. Will hold off on pulmonary consult unless complications develop 6. Continue DVT prophylaxis (heparin) 7. Home meds 8. Trend labs 9. Encourage PO intake (regular diet) 10. Discharge disposition pending Comment Review of Relevant I have reviewed the following items mayda (where applicable) has been applied. Medications: Current Medications Medications (Trade) Dose Ordered Sig/Cassidy Route PRN Reason Start Time Stop Time Status Last Admin Dose Admin Azithromycin (Zithromax) 250 mg DAILY PO 03/31/21 09:00 04/03/21 09:01 03/31/21 08:55 Remdesivir 200 mg/ Sodium Chloride 210 ml @ 210 mls/hr 1X ONCE IV 03/30/21 15:00 03/30/21 15:59 DC 03/30/21 16:16 Justifications for Admission Other Justification ATUL FARRELL III DO Mar 31, 2021 12:28
[2021-03-31] MEDS ORDERED: ASPIRIN 325 MG TABLET PO ONE (12:30)
--- NOTE | 2021-03-31 14:40 | NUR ---
SW following. Discussed with RN, pt from home with grandson, 3.5L (does not use oxygen at home), regular. COVID-19 positive. Med Assist following for self pay status. SW will continue to follow.
[2021-03-31 15:30] VITALS: BP 168/48
[2021-03-31] MEDS: REMDESIVIR 100mg in NORMAL SALINE 250ML X 4 DAYS IV SCH (16:06)
[2021-03-31 19:00] VITALS: BP 177/56
[2021-03-31] MEDS: LACTOBACILLUS RHAMNOSUS GG 1 CAPSULE. PO SCH (20:19)
[2021-03-31 23:00] VITALS: BP 130/46
[2021-04-01] MEDS: PIPERACILLIN/TAZOBACTAM 3.375 GM in IV NORMAL SALINE 50ML 50 ML IV SCH ×4 (00:22→18:23)
[2021-04-01 03:00] VITALS: BP 123/51
[2021-04-01] MEDS: HEPARIN for SUB-Q USE 5,000 UNIT/ML VIAL. SQ SCH ×3 (05:07→20:40)
[2021-04-01 07:00] VITALS: BP 157/50
[2021-04-01] MEDS: MULTIVITAMIN with MINERAL TABLET. PO SCH (10:29)
[2021-04-01] MEDS: SENNOSIDES/DOCUSATE 8.6/50MG TABLET. PO SCH ×2 (10:29→20:38)
[2021-04-01] MEDS: AZITHROMYCIN 250 MG TABLET. PO SCH (10:29)
[2021-04-01] MEDS: DEXAMETHASONE SOD PHOS 4 MG/ML VIAL IVP SCH (10:30)
[2021-04-01] MEDS: ASPIRIN 325 MG TABLET PO SCH (10:32)
[2021-04-01] MEDS: LACTOBACILLUS RHAMNOSUS GG 1 CAPSULE. PO SCH ×2 (10:32→20:38)
[2021-04-01 11:00] VITALS: BP 153/52
--- NOTE | 2021-04-01 11:20 | PDOC ---
[facility] [facility] PROGRESS NOTE Date of Service DOS: DATE: 04/01/21 TIME: 11:13 Chief Complaint Chief Complaint COVID-19 Infection (experienced shortness of breath) Pneumonia secondary to COVID-19 with possible superimposed bacterial pneumonia Benign hepatic mass History of Present Illness History of Present Illness Patient is a 60-year-old female presented to the emergency department overnight due to shortness of breath and back pain. Patient reports respiratory symptoms have been going on for about a week, she also endorses having diarrhea. Patient does not speak Namibian. Uncertain if she has had a fever but has had chills at home and overall fatigue. Does not know any Covid contacts. Did not receive Covid vaccine. Covid positive in emergency room. Required 3L O2 per nasal haily sumit in the ED. Lab work in emergency room overall unremarkable other than Covid positive. CT scan emergency room ruled out pulmonary embolism. However findings consistent with infiltrate. 03/31: Patient seen and examined. Blood pressure has been elevated since admission (144/67-173/79). Respiration rate has also been elevated (18-32). Discussed with RN. CHart reviewed. 04/01: Patient seen and examined. Discussed with RN. Chart reviewed. Patient endorses improvement in symptoms (no pain, no diarrhea, minimal cough). She reports sleeping well and good appetite. O2 requirements decreased from 4.5L to 4.0L per nasal cannula. Vitals/I&O Vitals/I&O: Vital Signs Date Time Temp Pulse Resp B/P (MAP) Pulse Ox O2 Delivery O2 Flow Rate FiO2 04/01/21 10:29 48 157/50 04/01/21 07:00 97.5 19 93 Nasal Cannula 4.0 97.5 I & O0 03/31/21 03/31/21 04/01/21 15:00 23:00 07:00 Intake Total 120 ml 980 ml Balance 120 ml 980 ml Physical Exam General: Alert, Oriented X3, Cooperative, No acute distress Heart: Regular rate, Normal S1, Normal S2 Lungs: Clear, Other (Coarse breath sounds) Abdomen: Normal bowel sounds Extremities: No clubbing, No cyanosis Skin: No rashes Labs Labs: Review of Systems Review of Systems: Patient denies changes in vision and vomiting. Assessment and Plan Assessmemt and Plan Assessment: COVID-19 Infection (Experienced shortness of breath) Pneumonia secondary to COVID-19 with possible superimposed bacterial pneumonia Benign hepatic mass Plan: 1. Continue COVID-19 Protocol (Remdesivir, azithromycin, zosyn, Robitussin, dexamethasone, O2 per nasal cannula, multivitamins, aspirin) 2. Will hold off on pulmonary consult unless complications develop 3. Continue DVT prophylaxis (heparin) 4. Home meds 5. Trend labs 6. Encourage PO intake (regular diet) 7. Discharge disposition pending Comment Review of Relevant I have reviewed the following items mayda (where applicable) has been applied. Medications: Current Medications Medications (Trade) Dose Ordered Sig/Cassidy Route PRN Reason Start Time Stop Time Status Last Admin Dose Admin Remdesivir 100 mg/ Sodium Chloride 230 ml @ 460 mls/hr Q24H IV 03/31/21 15:00 04/03/21 15:29 03/31/21 16:06 Lactobacillus Rhamnosus (Culturelle) 1 cap BID PO 03/31/21 21:00 04/01/21 10:32 Amlodipine Besylate (Norvasc) 5 mg 1X ONCE PO 03/31/21 12:30 03/31/21 12:32 DC 03/31/21 12:49 Multivitamins (Thera M Plus) 1 tab DAILY PO 04/01/21 09:00 04/01/21 10:29 Aspirin (Steve Aspirin) 81 mg 1X ONCE PO 03/31/21 12:30 03/31/21 12:32 DC 03/31/21 12:49 Amlodipine Besylate (Norvasc) 5 mg DAILY PO 04/01/21 09:00 04/01/21 10:29 Aspirin (Steve Aspirin) 81 mg DAILY PO 04/01/21 09:00 04/01/21 10:32 Justifications for Admission Other Justification ATUL FARRELL III DO Apr 01, 2021 11:20
--- NOTE | 2021-04-01 12:16 | NUR ---
SW following. Discussed with RN, pt still on 3.5-4l oxygen. COVID-19 positive. RN advised pt not ready for discharge yet. Med Assist following for self pay status. SW will continue to follow.
[2021-04-01 15:00] VITALS: BP 141/55
[2021-04-01] MEDS: REMDESIVIR 100mg in NORMAL SALINE 250ML X 4 DAYS IV SCH (16:35)
[2021-04-01 19:00] VITALS: BP 162/60
[2021-04-01] MEDS: guaiFENesin/CODEINE 100mg/10mg 5 ML LIQUID PO PRN (20:38)
[2021-04-01 23:00] VITALS: BP 154/53
[2021-04-02] MEDS: PIPERACILLIN/TAZOBACTAM 3.375 GM in IV NORMAL SALINE 50ML 50 ML IV SCH ×5 (00:50→23:20)
[2021-04-02 03:00] VITALS: BP 156/52
[2021-04-02] MEDS: HEPARIN for SUB-Q USE 5,000 UNIT/ML VIAL. SQ SCH ×3 (06:22→20:21)
[2021-04-02 07:08] LABS: ALBUMIN 2.5 g/dL (3.4-5.0); ALBUMIN/GLOBULIN RATIO 0.6 (1.0-1.7); CALCIUM 8.7 mg/dL (8.5-10.1); CREATININE 0.8 mg/dL (0.6-1.0); GFR 73.4; POTASSIUM 4.9 mmol/L (3.5-5.1); TOTAL BILIRUBIN 0.2 mg/dL (0.2-1.0); TOTAL PROTEIN 6.6 g/dL (6.4-8.2)
[2021-04-02 07:13] VITALS: BP 123/69
[2021-04-02] MEDS: ASPIRIN 325 MG TABLET PO SCH (09:55)
[2021-04-02] MEDS: SENNOSIDES/DOCUSATE 8.6/50MG TABLET. PO SCH ×2 (09:55→20:20)
[2021-04-02] MEDS: MULTIVITAMIN with MINERAL TABLET. PO SCH (09:55)
[2021-04-02] MEDS: LACTOBACILLUS RHAMNOSUS GG 1 CAPSULE. PO SCH ×2 (09:55→20:20)
[2021-04-02] MEDS: AZITHROMYCIN 250 MG TABLET. PO SCH (09:56)
[2021-04-02] MEDS: DEXAMETHASONE SOD PHOS 4 MG/ML VIAL IVP SCH (09:57)
[2021-04-02 11:00] VITALS: BP 163/62
--- NOTE | 2021-04-02 12:11 | PDOC ---
[employer] [facility] PROGRESS NOTE Date of Service DOS: DATE: 04/02/21 TIME: 12:03 Chief Complaint Chief Complaint COVID-19 Infection (experienced shortness of breath) Pneumonia secondary to COVID-19 with possible superimposed bacterial pneumonia Benign hepatic mass History of Present Illness History of Present Illness Patient is a 60-year-old female presented to the emergency department overnight due to shortness of breath and back pain. Patient reports respiratory symptoms have been going on for about a week, she also endorses having diarrhea. Patient does not speak Welsh. Uncertain if she has had a fever but has had chills at home and overall fatigue. Does not know any Covid contacts. Did not receive Covid vaccine. Covid positive in emergency room. Required 3L O2 per nasal haily sumit in the ED. Lab work in emergency room overall unremarkable other than Covid positive. CT scan emergency room ruled out pulmonary embolism. However findings consistent with infiltrate. 03/31: Patient seen and examined. Blood pressure has been elevated since admission (144/67-173/79). Respiration rate has also been elevated (18-32). Discussed with RN. CHart reviewed. 04/01: Patient seen and examined. Discussed with RN. Chart reviewed. Patient endorses improvement in symptoms (no pain, no diarrhea, minimal cough). She reports sleeping well and good appetite. O2 requirements decreased from 4.5L to 4.0L per nasal cannula. 04/02: Patient seen and examined. Discussed with RN. Chart reviewed. Patient endorses feeling well with no pain and a minor cough. Blood glucose 303. O2 requirements continue to be 4L O2 per nasal cannula. Hope to discharge when O2 requirements decrease. Vitals/I&O Vitals/I&O: Vital Signs Date Time Temp Pulse Resp B/P (MAP) Pulse Ox O2 Delivery O2 Flow Rate FiO2 04/02/21 11:00 98.0 46 18 163/62 (95) 98 Nasal Cannula 4.0 98.0 I & O 04/01/21 04/01/21 04/02/21 15:00 23:00 07:00 Intake Total 600 ml 400 ml 200 ml Balance 600 ml 400 ml 200 ml Physical Exam General: Alert, Oriented X3, Cooperative, No acute distress Heart: Regular rate, Normal S1, Normal S2 Lungs: Clear, Other (Coarse breath sounds) Abdomen: Normal bowel sounds Extremities: No clubbing, No cyanosis Skin: No rashes Labs Labs: Laboratory Tests Test 04/02/21 05:35 Sodium Level 137 mmol/L (136-145) Potassium Level 4.9 mmol/L (3.5-5.1) Chloride Level 102 mmol/L (98-107) Carbon Dioxide Level 28 mmol/L (21-32) Anion Gap 7 (6-14) Blood Urea Nitrogen 15 mg/dL (7-20) Creatinine 0.8 mg/dL (0.6-1.0) Estimated GFR (Cockcroft-Gault) 73.4 BUN/Creatinine Ratio 19 (6-20) Glucose Level 303 mg/dL (70-99) Calcium Level 8.7 mg/dL (8.5-10.1) Total Bilirubin 0.2 mg/dL (0.2-1.0) Aspartate Amino Transf (AST/SGOT) 23 U/L (15-37) Alanine Aminotransferase (ALT/SGPT) 56 U/L (14-59) Alkaline Phosphatase 128 U/L (46-116) Total Protein 6.6 g/dL (6.4-8.2) Albumin 2.5 g/dL (3.4-5.0) Albumin/Globulin Ratio 0.6 (1.0-1.7) Review of Systems Review of Systems: Patient denies nausea or vomiting. Assessment and Plan Assessmemt and Plan Assessment: COVID-19 Infection (Experienced shortness of breath) Pneumonia secondary to COVID-19 with possible superimposed bacterial pneumonia Benign hepatic mass Plan: 1. Continue COVID-19 Protocol (Remdesivir, azithromycin, zosyn, Robitussin, dexamethasone, O2 per nasal cannula, multivitamins, aspirin) 2. Start glipizide 5mg PO for high blood glucose 3. Will hold off on pulmonary consult unless complications develop 4. Continue DVT prophylaxis (heparin) 5. Home meds 6. Trend labs 7. Encourage PO intake (regular diet) 8. Discharge disposition pending- plan to discharge when O2 requirements decrease Comment Review of Relevant I have reviewed the following items mayda (where applicable) has been applied. Justifications for Admission Other Justification ATUL FARRELL III DO Apr 02, 2021 12:11
[2021-04-02 14:50] VITALS: BP 134/39
[2021-04-02] MEDS: glipiZIDE 5 MG TABLET PO SCH (16:18)
[2021-04-02] MEDS: REMDESIVIR 100mg in NORMAL SALINE 250ML X 4 DAYS IV SCH (16:18)
[2021-04-02 19:00] VITALS: BP 151/61
[2021-04-02 23:02] VITALS: BP 157/54
[2021-04-03 03:11] VITALS: BP 185/52
[2021-04-03] MEDS: PIPERACILLIN/TAZOBACTAM 3.375 GM in IV NORMAL SALINE 50ML 50 ML IV SCH ×4 (06:01→23:51)
[2021-04-03] MEDS: HEPARIN for SUB-Q USE 5,000 UNIT/ML VIAL. SQ SCH ×3 (06:02→21:17)
[2021-04-03 06:49] VITALS: BP 173/63
[2021-04-03] MEDS: MULTIVITAMIN with MINERAL TABLET. PO SCH (08:34)
[2021-04-03] MEDS: LACTOBACILLUS RHAMNOSUS GG 1 CAPSULE. PO SCH ×2 (08:34→21:16)
[2021-04-03] MEDS: ASPIRIN 325 MG TABLET PO SCH (08:34)
[2021-04-03] MEDS: glipiZIDE 5 MG TABLET PO SCH ×2 (08:34→17:45)
[2021-04-03] MEDS: AZITHROMYCIN 250 MG TABLET. PO SCH (08:34)
[2021-04-03] MEDS: SENNOSIDES/DOCUSATE 8.6/50MG TABLET. PO SCH ×3 (08:34→21:16)
[2021-04-03] MEDS: DEXAMETHASONE SOD PHOS 4 MG/ML VIAL IVP SCH (08:35)
--- NOTE | 2021-04-03 10:41 | PDOC ---
[employer] PROGRESS NOTE Date of Service DOS: DATE: 04/03/21 TIME: 10:30 Chief Complaint Chief Complaint COVID-19 Infection (experienced shortness of breath) Pneumonia secondary to COVID-19 with possible superimposed bacterial pneumonia Benign hepatic mass History of Present Illness History of Present Illness Patient is a 60-year-old female presented to the emergency department overnight due to shortness of breath and back pain. Patient reports respiratory symptoms have been going on for about a week, she also endorses having diarrhea. Patient does not speak [place]an. Uncertain if she has had a fever but has had chills at home and overall fatigue. Does not know any Covid contacts. Did not receive Covid vaccine. Covid positive in emergency room. Required 3L O2 per nasal haily sumit in the ED. Lab work in emergency room overall unremarkable other than Covid positive. CT scan emergency room ruled out pulmonary embolism. However findings consistent with infiltrate. 03/31: Patient seen and examined. Blood pressure has been elevated since admission (144/67-173/79). Respiration rate has also been elevated (18-32). Discussed with RN. CHart reviewed. 04/01: Patient seen and examined. Discussed with RN. Chart reviewed. Patient endorses improvement in symptoms (no pain, no diarrhea, minimal cough). She reports sleeping well and good appetite. O2 requirements decreased from 4.5L to 4.0L per nasal cannula. 04/02: Patient seen and examined. Discussed with RN. Chart reviewed. Patient endorses feeling well with no pain and a minor cough. Blood glucose 303. O2 requirements continue to be 4L O2 per nasal cannula. Hope to discharge when O2 requirements decrease. 04/03: Patient seen and examined. Discussed with RN. Chart reviewed. Patient endorses she feels well. She denies pain. Patient still requiring 4L O2 per nasal cannula. Vitals/I&O Vitals/I&O: Vital Signs Date Time Temp Pulse Resp B/P (MAP) Pulse Ox O2 Delivery O2 Flow Rate FiO2 04/03/21 08:34 47 173/63 04/03/21 06:49 97.9 20 98 Nasal Cannula 97.9 04/02/21 14:50 4.0 I & O 04/02/21 04/02/21 04/03/21 15:00 23:00 07:00 Intake Total 400 ml 200 ml Balance 400 ml 200 ml Physical Exam General: Alert, Oriented X3, Cooperative, No acute distress Heart: Regular rate, Normal S1, Normal S2 Lungs: Clear, Other (Coarse breath sounds) Abdomen: Normal bowel sounds Extremities: No clubbing, No cyanosis Skin: No rashes Labs Labs: Laboratory Tests Test 04/03/21 07:39 Glucose (Fingerstick) 262 mg/dL (70-99) Review of Systems Review of Systems: Patient denies nausea and vomiting Assessment and Plan Assessmemt and Plan Assessment: COVID-19 Infection (Experienced shortness of breath) Pneumonia secondary to COVID-19 with possible superimposed bacterial pneumonia Benign hepatic mass Plan: 1. Continue COVID-19 Protocol (Remdesivir, azithromycin, zosyn, Robitussin, dexamethasone, O2 per nasal cannula, multivitamins, aspirin) 2. Continue glipizide 3. Will hold off on pulmonary consult unless complications develop 4. Continue DVT prophylaxis (heparin) 5. Home meds 6. Trend labs 7. Encourage PO intake (regular diet) 8. Discharge disposition pending- plan to discharge when O2 requirements decrease Comment Review of Relevant I have reviewed the following items mayda (where applicable) has been applied. Medications: Current Medications Medications (Trade) Dose Ordered Sig/Cassidy Route PRN Reason Start Time Stop Time Status Last Admin Dose Admin Glipizide (Glucotrol) 5 mg BIDBFRMEAL PO 04/02/21 16:30 04/03/21 08:34 Justifications for Admission Other Justification ATUL FARRELL III DO Apr 03, 2021 10:41
[2021-04-03 11:00] VITALS: BP 170/72
[2021-04-03] MEDS: REMDESIVIR 100mg in NORMAL SALINE 250ML X 4 DAYS IV SCH (14:53)
[2021-04-03 15:00] VITALS: BP 147/55
[2021-04-03 19:00] VITALS: BP 153/53
[2021-04-03 23:00] VITALS: BP 161/54
[2021-04-04 03:06] VITALS: BP 166/64
[2021-04-04] MEDS: HEPARIN for SUB-Q USE 5,000 UNIT/ML VIAL. SQ SCH ×3 (05:54→21:43)
[2021-04-04] MEDS: PIPERACILLIN/TAZOBACTAM 3.375 GM in IV NORMAL SALINE 50ML 50 ML IV SCH ×4 (05:54→23:48)
[2021-04-04 06:37] VITALS: BP 166/59
[2021-04-04] MEDS: glipiZIDE 5 MG TABLET PO SCH ×2 (08:46→16:28)
[2021-04-04] MEDS: LACTOBACILLUS RHAMNOSUS GG 1 CAPSULE. PO SCH ×2 (08:48→21:42)
[2021-04-04] MEDS: DEXAMETHASONE SOD PHOS 4 MG/ML VIAL IVP SCH (08:48)
[2021-04-04] MEDS: ASPIRIN 325 MG TABLET PO SCH (08:48)
[2021-04-04] MEDS: SENNOSIDES/DOCUSATE 8.6/50MG TABLET. PO SCH ×2 (08:48→21:42)
[2021-04-04] MEDS: MULTIVITAMIN with MINERAL TABLET. PO SCH (08:48)
--- NOTE | 2021-04-04 09:06 | PDOC ---
PROGRESS NOTES Date of Service: DATE: 04/04/21 TIME: 09:06 Chief Complaint Chief Complaint COVID-19 Infection (experienced shortness of breath) Pneumonia secondary to COVID-19 with possible superimposed bacterial pneumonia Benign hepatic mass History of Present Illness History of Present Illness Patient is a 60-year-old female presented to the emergency department overnight due to shortness of breath and back pain. Patient reports respiratory symptoms have been going on for about a week, she also endorses having diarrhea. Patient does not speak Gabonese. Uncertain if she has had a fever but has had chills at home and overall fatigue. Does not know any Covid contacts. Did not receive Covid vaccine. Covid positive in emergency room. Required 3L O2 per nasal cannula in the ED. Lab work in emergency room overall unremarkable other than Covid positive. CT scan emergency room ruled out pulmonary embolism. However fin dings consistent with infiltrate. 03/31: Patient seen and examined. Blood pressure has been elevated since admission (144/67-173/79). Respiration rate has also been elevated (18-32). Discussed with RN. CHart reviewed. 04/01: Patient seen and examined. Discussed with RN. Chart reviewed. Patient endorses improvement in symptoms (no pain, no diarrhea, minimal cough). She reports sleeping well and good appetite. O2 requirements decreased from 4.5L to 4.0L per nasal cannula. 04/02: Patient seen and examined. Discussed with RN. Chart reviewed. Patient endorses feeling well with no pain and a minor cough. Blood glucose 303. O2 requirements continue to be 4L O2 per nasal cannula. Hope to discharge when O2 requirements decrease. 04/03: Patient seen and examined. Discussed with RN. Chart reviewed. Patient endorses she feels well. She denies pain. Patient still requiring 4L O2 per nasal cannula. 04/04: seen and examined. Discussed with RN. Chart reviewed. denies pain. still requiring 4L O2 per nasal cannula. Vitals Vitals Vital Signs Date Time Temp Pulse Resp B/P (MAP) Pulse Ox O2 Delivery O2 Flow Rate FiO2 04/04/21 08:48 54 166/59 04/04/21 06:37 97.6 19 98 Nasal Cannula 97.6 04/03/21 20:15 4.0 Physical Exam General: Alert, Oriented X3, Cooperative, No acute distress Heart: Regular rate, Normal S1, Normal S2 Lungs: Clear, Other (Coarse breath sounds) Abdomen: Normal bowel sounds Extremities: No clubbing, No cyanosis Skin: No rashes Labs LABS Signed PATIENT: ROWENA DALY: [id number] : 1960 LOCATION: ER AGE: 60 SEX: F EXAM STATUS: REG ER ORD. PHYSICIAN: MARCELINO DALY APRN REASON: Chest pain with shortness of breath pE study;OMNI 350, 100ML PROCEDURE: CT ANGIOGRAPHY CHEST CTA CHEST INDICATION: Chest pain with shortness of breath pE study. Comparison: Radiograph 03/29/2021. TECHNIQUE: Following the uneventful administration of intravenous contrast, 100 cc Omnipaque 350, axial CT sections were obtained through the lungs and upper abdomen. Multiplanar reconstructions and MIP images were obtained. PQRS compliance statement: One or more of the following individualized dose reduction techniques were utilized for this examination: 1. Automated exposure control 2. Adjustment of the mA and/or kV according to patient size 3. Use of iterative reconstruction technique FINDINGS: Pulmonary arteries: No evidence of pulmonary thromboembolic disease. Lungs and Airways: Patchy bilateral consolidations. No abnormality of the central airways. Pleura: The pleural spaces are normal. Heart and Mediastinum: The visualized thyroid is normal in size and attenuation. No axillary or supraclavicular lymphadenopathy. No mediastinal, hilar or retrocrural lymphadenopathy. Cardiomegaly. No pericardial effusion. Normal caliber thoracic aorta. Abdomen: Limited images through the upper abdomen show no abnormality of the visualized organs. Bones and Soft Tissues: The visualized bones and chest wall soft tissues are within normal limits. IMPRESSION: 1. No evidence of pulmonary thromboembolic disease. 2. Patchy bilateral consolidations, likely multifocal infection or edema. Electronically signed by: Shari Steele MD (03/29/2021 10:40 PM) [facility] DICTATED and SIGNED BY: SHARI STEELE MD DATE: 03/29/21 [id number] 0 Comment Review of Relevant I have reviewed the following items mayda (where applicable) has been applied. Labs Laboratory Tests Test 04/03/21 07:39 Glucose (Fingerstick) 262 mg/dL (70-99) Microbiology 03/29/21 Blood Culture - Final, Complete NO GROWTH AFTER 5 DAYS Medications Current Medications Acetaminophen (Tylenol) 1,000 mg 1X ONCE PO Last administered on 03/29/21at 20:58; Start 03/29/21 at 19:15; Stop 03/29/21 at 19:22; Status DC Ibuprofen (Motrin) 600 mg 1X ONCE PO ; Start 03/29/21 at 19:15; Stop 03/29/21 at 19:22; Status DC Azithromycin (Zithromax) 500 mg 1X ONCE PO Last administered on 03/29/21at 20:58; Start 03/29/21 at 20:30; Stop 03/29/21 at 20:31; Status DC Ketorolac Tromethamine (Toradol 30mg Vial) 30 mg 1X ONCE IVP Last administered on 03/29/21at 20:58; Start 03/29/21 at 20:30; Stop 03/29/21 at 20:31; Status DC Acetaminophen (Tylenol) 1,000 mg 1X ONCE PO ; Start 03/29/21 at 20:30; Stop 03/29/21 at 20:53; Status DC Amoxicillin (Amoxil) 1,000 mg 1X ONCE PO ; Start 03/29/21 at 21:30; Stop 03/29/21 at 21:34; Status DC Iohexol (Omnipaque 350 Mg/ml) 100 ml 1X ONCE IV Last administered on 03/29/21at 22:35; Start 03/29/21 at 22:15; Stop 03/29/21 at 22:16; Status DC Info (CONTRAST GIVEN -- Rx MONITORING) 1 each PRN DAILY PRN MC SEE COMMENTS; Start 03/29/21 at 22:15; Stop 03/31/21 at 22:14; Status DC Ceftriaxone Sodium (Rocephin) 2 gm 1X ONCE IVP Last administered on 03/29/21at 23:03; Start 03/29/21 at 22:30; Stop 03/29/21 at 22:31; Status DC Ondansetron HCl (Zofran) 4 mg PRN Q6HRS PRN IVP NAUSEA/VOMITING; Start 03/30/21 at 11:00 Calcium Carbonate/ Glycine (Tums) 500 mg PRN Q3HRS PRN PO UPSET STOMACH; Start 03/30/21 at 11:00 Zolpidem Tartrate (Ambien) 5 mg PRN QHS PRN PO INSOMNIA, MAY REPEAT IN 1HR; Start 03/30/21 at 11:00 Info (Non-Icu Electrolyte Protocol) 1 ea PRN DAILY PRN MC SEE COMMENTS; Start 03/30/21 at 11:00 Oxycodone/ Acetaminophen (Percocet 5/325) 1 tab PRN Q4HRS PRN PO MILD PAIN, 1ST CHOICE; Start 03/30/21 at 11:00 Oxycodone/ Acetaminophen (Percocet 5/325) 2 tab PRN Q4HRS PRN PO MODERATE PAIN, SEVERE PAIN; Start 03/30/21 at 11:00 Acetaminophen (Tylenol) 650 mg PRN Q6HRS PRN PO Headaches, Temp > 101.5F; Start 03/30/21 at 11:00 Senna/Docusate Sodium (Senna Plus) 1 tab BID PO Last administered on 04/04/21at 08:48; Start 03/30/21 at 12:00 Heparin Sodium (Porcine) (Heparin Sodium) 5,000 unit Q8HRS SQ Last administered on 04/04/21at 05:54; Start 03/30/21 at 12:00 Dexamethasone Sodium Phosphate (Decadron) 6 mg DAILY IVP Last administered on 04/04/21at 08:48; Start 03/30/21 at 11:15; Stop 04/09/21 at 09:01 Piperacillin Sod/ Tazobactam Sod (Zosyn Per Pharmacy) 1 each PRN DAILY PRN MC SEE COMMENTS; Start 03/30/21 at 11:15 Guaifenesin/ Codeine Phosphate (Robitussin Ac) 5 ml PRN Q6HRS PRN PO COUGH Last administered on 04/01/21at 20:38; Start 03/30/21 at 11:15 Azithromycin (Zithromax) 500 mg 1X ONCE PO Last administered on 03/30/21at 11:48; Start 03/30/21 at 11:15; Stop 03/30/21 at 11:27; Status DC Azithromycin (Zithromax) 250 mg DAILY PO Last administered on 04/03/21at 08:34; Start 03/31/21 at 09:00; Stop 04/03/21 at 09:01; Status DC Albuterol/ Ipratropium (Combivent Respimat 20-100 Mcg) 2 puff PRN Q4HRS PRN INH WHEEZING Last administered on 03/31/21at 15:00; Start 03/30/21 at 11:30 Piperacillin Sod/ Tazobactam Sod 3.375 gm/Sodium Chloride 50 ml @ 100 mls/hr Q6HRS IV Last administered on 04/04/21at 05:54; Start 03/30/21 at 12:00 Remdesivir 200 mg/ Sodium Chloride 210 ml @ 210 mls/hr 1X ONCE IV Last administered on 03/30/21at 16:16; Start 03/30/21 at 15:00; Stop 03/30/21 at 15:59; Status DC Remdesivir 100 mg/ Sodium Chloride 230 ml @ 460 mls/hr Q24H IV Last administered on 04/03/21at 14:53; Start 03/31/21 at 15:00; Stop 04/03/21 at 15:29; Status DC Lactobacillus Rhamnosus (Culturelle) 1 cap BID PO Last administered on 04/04/21 08:48; Start 03/31/21 at 21:00 Amlodipine Besylate (Norvasc) 5 mg 1X ONCE PO Last administered on 03/31/21at 12:49; Start 03/31/21 at 12:30; Stop 03/31/21 at 12:32; Status DC Multivitamins (Thera M Plus) 1 tab DAILY PO Last administered on 04/04/21at 08:48; Start 04/01/21 at 09:00 Aspirin (Steve Aspirin) 81 mg 1X ONCE PO Last administered on 03/31/21at 12:49; Start 03/31/21 at 12:30; Stop 03/31/21 at 12:32; Status DC Amlodipine Besylate (Norvasc) 5 mg DAILY PO Last administered on 04/04/21 08:48; Start 04/01/21 at 09:00 Aspirin (Steve Aspirin) 81 mg DAILY PO Last administered on 04/04/21 08:48; Start 04/01/21 at 09:00 Glipizide (Glucotrol) 5 mg BIDBFRMEAL PO Last administered on 04/04/21at 08:46; Start 04/02/21 at 16:30 Vitals/I & O Vital Sign - Last 24 Hours 04/03/21 04/03/21 04/03/21/29/21 11:00 15:00 19:00 20:15 Temp 97.9 97.6 97.9 97.9 97.6 97.9 Pulse 51 49 53 Resp 18 22 20 B/P (MAP) 170/72 (104) 147/55 (85) 153/53 (86) Pulse Ox 97 94 97 O2 Delivery Nasal Cannula Nasal Cannula Nasal Cannula Nasal Cannula O2 Flow Rate 4.0 4.0 4.0 04/03/21 04/04/21 04/04/21 04/04/21 23:00 03:06 06:37 08:48 Temp 97.8 97.9 97.6 97.8 97.9 97.6 Pulse 49 48 54 54 Resp 18 18 19 B/P (MAP) 161/54 (89) 166/64 (98) 166/59 (94) 166/59 Pulse Ox 97 97 98 O2 Delivery Nasal Cannula Nasal Cannula Nasal Cannula Intake and Output 04/03/21 04/03/21 04/04/21 15:00 23:00 07:00 Intake Total 600 ml 300 ml 50 ml Output Total 0 ml Balance 600 ml 300 ml 50 ml Justicifation of Admission Dx: Justifications for Admission: Justification of Admission Dx: Yes Comminuty Aquired Pneumonia: Hypoxemia ALEKSANDAR STONE MD Apr 04, 2021 09:06
--- NOTE | 2021-04-04 10:57 | NUR ---
SW following. Discussed with RN, pt from home with caroline, QuiqueL (does not use oxygen at home), regular diet. 6 minute walk needed prior to discharge - oxygen will be $120 a month for pt d/t self pay status. COVID-19 positive. SW will continue to follow.
[2021-04-04 11:00] VITALS: BP 121/70
[2021-04-04] MEDS ORDERED: DEXTROSE 50% 25 GM / 50ML DISP.SYRIN. IV PRN (12:00)
[2021-04-04] MEDS: INSULIN LISPRO 300 UNITS/3 ML VIAL. SQ SCH ×2 (12:19→17:27)
[2021-04-04 15:00] VITALS: BP 132/63
[2021-04-04 16:55] LABS: C-REACTIVE PROTEIN 14.9 mg/L (0-3.3)
--- NOTE | 2021-04-04 17:15 | RAD ---
XR CHEST 1V History: Reason: pneumonia / Spl. Instructions: / History: Comparison: March 29, 2021 Findings: Increased multifocal ill-defined opacities bilaterally. No pleural effusion. No pneumothorax. Unchang ed heart size. Impression: 1. Increased multifocal pulmonary opacities bilaterally. Electronically signed by: Farhan Zarco DO (04/04/2021 5:13 PM) [id number]
[2021-04-04] MEDS ORDERED: INSULIN LISPRO 300 UNITS/3 ML VIAL. SQ ONE ×2 (17:30→21:30)
[2021-04-04 19:00] VITALS: BP 128/52
[2021-04-04 23:00] VITALS: BP 113/62
[2021-04-05 03:00] VITALS: BP 154/64
[2021-04-05] MEDS: HEPARIN for SUB-Q USE 5,000 UNIT/ML VIAL. SQ SCH ×2 (05:44→14:00)
[2021-04-05] MEDS: PIPERACILLIN/TAZOBACTAM 3.375 GM in IV NORMAL SALINE 50ML 50 ML IV SCH ×3 (05:47→17:32)
[2021-04-05 07:00] VITALS: BP 134/74
[2021-04-05 07:12] LABS: BASO % 0 % (0-3); EOS % 0 % (0-3); HEMOGLOBIN 14.2 g/dL (12.0-15.5); LYMPH # 1.1 x10^3/uL (1.0-4.8); LYMPH % 14 % (24-48); MEAN CORPUSCULAR HEMOGLOBIN 30 pg (25-35); MEAN CORPUSCULAR HGB CONC 35 g/dL (31-37); MEAN CORPUSCULAR VOLUME 88 fL (79-100); MONO # 0.5 x10^3/uL (0.0-1.1); MONO % 7 % (0-9); NEUT % 79 % (31-73); PLATELET COUNT 508 x10^3/uL (140-400); RED BLOOD COUNT 4.67 x10^6/uL (3.50-5.40); RED CELL DISTRIBUTION WIDTH 13.6 % (11.5-14.5); WHITE BLOOD COUNT 7.7 x10^3/uL (4.0-11.0)
[2021-04-05 07:29] LABS: ALBUMIN 2.6 g/dL (3.4-5.0); ALBUMIN/GLOBULIN RATIO 0.6 (1.0-1.7); CALCIUM 8.9 mg/dL (8.5-10.1); CREATININE 0.7 mg/dL (0.6-1.0); GFR 85.6; POTASSIUM 4.1 mmol/L (3.5-5.1); TOTAL BILIRUBIN 0.5 mg/dL (0.2-1.0); TOTAL PROTEIN 7.1 g/dL (6.4-8.2)
[2021-04-05] MEDS: glipiZIDE 5 MG TABLET PO SCH ×2 (07:45→16:37)
[2021-04-05] MEDS: INSULIN LISPRO 300 UNITS/3 ML VIAL. SQ SCH ×3 (08:11→17:20)
--- NOTE | 2021-04-05 08:50 | PDOC ---
PROGRESS NOTES Date of Service: DATE: 04/05/21 TIME: 08:50 Chief Complaint Chief Complaint COVID-19 Infection (experienced shortness of breath) Pneumonia secondary to COVID-19 with possible superimposed bacterial pneumonia Benign hepatic mass History of Present Illness History of Present Illness Patient is a 60-year-old female presented to the emergency department overnight due to shortness of breath and back pain. Patient reports respiratory symptoms have been going on for about a week, she also endorses having diarrhea. Patient does not speak [place]. Uncertain if she has had a fever but has had chills at home and overall fatigue. Does not know any Covid contacts. Did not receive Covid vaccine. Covid positive in emergency room. Required 3L O2 per nasal cannula in the ED. Lab work in emergency room overall unremarkable other than Covid positive. CT scan emergency room ruled out pulmonary embolism. However fin dings consistent with infiltrate. 03/31: Patient seen and examined. Blood pressure has been elevated since admission (144/67-173/79). Respiration rate has also been elevated (18-32). Discussed with RN. CHart reviewed. 04/01: Patient seen and examined. Discussed with RN. Chart reviewed. Patient endorses improvement in symptoms (no pain, no diarrhea, minimal cough). She reports sleeping well and good appetite. O2 requirements decreased from 4.5L to 4.0L per nasal cannula. 04/02: Patient seen and examined. Discussed with RN. Chart reviewed. Patient endorses feeling well with no pain and a minor cough. Blood glucose 303. O2 requirements continue to be 4L O2 per nasal cannula. Hope to discharge when O2 requirements decrease. 04/03: Patient seen and examined. Discussed with RN. Chart reviewed. Patient endorses she feels well. She denies pain. Patient still requiring 4L O2 per nasal cannula. 04/04: seen and examined. Discussed with RN. Chart reviewed. denies pain. still requiring 4L O2 per nasal cannula. 04/05 seen and examined. Discussed with RN. Chart reviewed. denies pain. ON ROOM AIR HOME TODAY D/C PLANNING 37 MIN Vitals Vitals Vital Signs Date Time Temp Pulse Resp B/P (MAP) Pulse Ox O2 Delivery O2 Flow Rate FiO2 04/05/21 07:45 Room Air 04/05/21 07:00 97.8 50 18 134/74 (94) 100 4.0 97.8 Physical Exam General: Alert, Oriented X3, Cooperative, No acute distress Heart: Regular rate, Normal S1, Normal S2 Lungs: Clear, Other (Coarse breath sounds) Abdomen: Normal bowel sounds, Soft Extremities: No clubbing, No cyanosis Skin: No rashes Labs LABS Laboratory Tests Test 04/04/21 11:51 04/04/21 15:50 04/04/21 17:14 04/04/21 19:15 Glucose (Fingerstick) 340 mg/dL (70-99) 389 mg/dL (70-99) 456 mg/dL (70-99) Ferritin 641 ng/mL (8-252) C-Reactive Protein, Quantitative 14.9 mg/L (0-3.3) Test 04/04/21 20:13 04/04/21 23:22 04/05/21 06:30 04/05/21 07:23 Glucose (Fingerstick) 455 mg/dL (70-99) 368 mg/dL (70-99) 242 mg/dL (70-99) White Blood Count 7.7 x10^3/uL (4.0-11.0) Red Blood Count 4.67 x10^6/uL (3.50-5.40) Hemoglobin 14.2 g/dL (12.0-15.5) Hematocrit 41.0 % (36.0-47.0) Mean Corpuscular Volume 88 fL (79-100) Mean Corpuscular Hemoglobin 30 pg (25-35) Mean Corpuscular Hemoglobin Concent 35 g/dL (31-37) Red Cell Distribution Width 13.6 % (11.5-14.5) Platelet Count 508 x10^3/uL (140-400) Neutrophils (%) (Auto) 79 % (31-73) Lymphocytes (%) (Auto) 14 % (24-48) Monocytes (%) (Auto) 7 % (0-9) Eosinophils (%) (Auto) 0 % (0-3) Basophils (%) (Auto) 0 % (0-3) Neutrophils # (Auto) 6.0 x10^3/uL (1.8-7.7) Lymphocytes # (Auto) 1.1 x10^3/uL (1.0-4.8) Monocytes # (Auto) 0.5 x10^3/uL (0.0-1.1) Eosinophils # (Auto) 0.0 x10^3/uL (0.0-0.7) Basophils # (Auto) 0.0 x10^3/uL (0.0-0.2) Sodium Level 136 mmol/L (136-145) Potassium Level 4.1 mmol/L (3.5-5.1) Chloride Level 101 mmol/L (98-107) Carbon Dioxide Level 31 mmol/L (21-32) Anion Gap 4 (6-14) Blood Urea Nitrogen 16 mg/dL (7-20) Creatinine 0.7 mg/dL (0.6-1.0) Estimated GFR (Cockcroft-Gault) 85.6 BUN/Creatinine Ratio 23 (6-20) Glucose Level 240 mg/dL (70-99) Calcium Level 8.9 mg/dL (8.5-10.1) Total Bilirubin 0.5 mg/dL (0.2-1.0) Aspartate Amino Transf (AST/SGOT) 7 U/L (15-37) Alanine Aminotransferase (ALT/SGPT) 42 U/L (14-59) Alkaline Phosphatase 101 U/L (46-116) Total Protein 7.1 g/dL (6.4-8.2) Albumin 2.6 g/dL (3.4-5.0) Albumin/Globulin Ratio 0.6 (1.0-1.7) Comment Review of Relevant I have reviewed the following items mayda (where applicable) has been applied. Labs Laboratory Tests Test 04/04/21 07:54 04/04/21 11:51 04/04/21 15:50 04/04/21 17:14 Glucose (Fingerstick) 278 mg/dL (70-99) 340 mg/dL (70-99) 389 mg/dL (70-99) Ferritin 641 ng/mL (8-252) C-Reactive Protein, Quantitative 14.9 mg/L (0-3.3) Test 04/04/21 19:15 04/04/21 20:13 04/04/21 23:22 04/05/21 06:30 Glucose (Fingerstick) 456 mg/dL (70-99) 455 mg/dL (70-99) 368 mg/dL (70-99) White Blood Count 7.7 x10^3/uL (4.0-11.0) Red Blood Count 4.67 x10^6/uL (3.50-5.40) Hemoglobin 14.2 g/dL (12.0-15.5) Hematocrit 41.0 % (36.0-47.0) Mean Corpuscular Volume 88 fL (79-100) Mean Corpuscular Hemoglobin 30 pg (25-35) Mean Corpuscular Hemoglobin Concent 35 g/dL (31-37) Red Cell Distribution Width 13.6 % (11.5-14.5) Platelet Count 508 x10^3/uL (140-400) Neutrophils (%) (Auto) 79 % (31-73) Lymphocytes (%) (Auto) 14 % (24-48) Monocytes (%) (Auto) 7 % (0-9) Eosinophils (%) (Auto) 0 % (0-3) Basophils (%) (Auto) 0 % (0-3) Neutrophils # (Auto) 6.0 x10^3/uL (1.8-7.7) Lymphocytes # (Auto) 1.1 x10^3/uL (1.0-4.8) Monocytes # (Auto) 0.5 x10^3/uL (0.0-1.1) Eosinophils # (Auto) 0.0 x10^3/uL (0.0-0.7) Basophils # (Auto) 0.0 x10^3/uL (0.0-0.2) Sodium Level 136 mmol/L (136-145) Potassium Level 4.1 mmol/L (3.5-5.1) Chloride Level 101 mmol/L (98-107) Carbon Dioxide Level 31 mmol/L (21-32) Anion Gap 4 (6-14) Blood Urea Nitrogen 16 mg/dL (7-20) Creatinine 0.7 mg/dL (0.6-1.0) Estimated GFR (Cockcroft-Gault) 85.6 BUN/Creatinine Ratio 23 (6-20) Glucose Level 240 mg/dL (70-99) Calcium Level 8.9 mg/dL (8.5-10.1) Total Bilirubin 0.5 mg/dL (0.2-1.0) Aspartate Amino Transf (AST/SGOT) 7 U/L (15-37) Alanine Aminotransferase (ALT/SGPT) 42 U/L (14-59) Alkaline Phosphatase 101 U/L (46-116) Total Protein 7.1 g/dL (6.4-8.2) Albumin 2.6 g/dL (3.4-5.0) Albumin/Globulin Ratio 0.6 (1.0-1.7) Test 04/05/21 07:23 Glucose (Fingerstick) 242 mg/dL (70-99) Laboratory Tests Test 04/04/21 11:51 04/04/21 15:50 04/04/21 17:14 04/04/21 19:15 Glucose (Fingerstick) 340 mg/dL (70-99) 389 mg/dL (70-99) 456 mg/dL (70-99) Ferritin 641 ng/mL (8-252) C-Reactive Protein, Quantitative 14.9 mg/L (0-3.3) Test 04/04/21 20:13 04/04/21 23:22 04/05/21 06:30 04/05/21 07:23 Glucose (Fingerstick) 455 mg/dL (70-99) 368 mg/dL (70-99) 242 mg/dL (70-99) White Blood Count 7.7 x10^3/uL (4.0-11.0) Red Blood Count 4.67 x10^6/uL (3.50-5.40) Hemoglobin 14.2 g/dL (12.0-15.5) Hematocrit 41.0 % (36.0-47.0) Mean Corpuscular Volume 88 fL (79-100) Mean Corpuscular Hemoglobin 30 pg (25-35) Mean Corpuscular Hemoglobin Concent 35 g/dL (31-37) Red Cell Distribution Width 13.6 % (11.5-14.5) Platelet Count 508 x10^3/uL (140-400) Neutrophils (%) (Auto) 79 % (31-73) Lymphocytes (%) (Auto) 14 % (24-48) Monocytes (%) (Auto) 7 % (0-9) Eosinophils (%) (Auto) 0 % (0-3) Basophils (%) (Auto) 0 % (0-3) Neutrophils # (Auto) 6.0 x10^3/uL (1.8-7.7) Lymphocytes # (Auto) 1.1 x10^3/uL (1.0-4.8) Monocytes # (Auto) 0.5 x10^3/uL (0.0-1.1) Eosinophils # (Auto) 0.0 x10^3/uL (0.0-0.7) Basophils # (Auto) 0.0 x10^3/uL (0.0-0.2) Sodium Level 136 mmol/L (136-145) Potassium Level 4.1 mmol/L (3.5-5.1) Chloride Level 101 mmol/L (98-107) Carbon Dioxide Level 31 mmol/L (21-32) Anion Gap 4 (6-14) Blood Urea Nitrogen 16 mg/dL (7-20) Creatinine 0.7 mg/dL (0.6-1.0) Estimated GFR (Cockcroft-Gault) 85.6 BUN/Creatinine Ratio 23 (6-20) Glucose Level 240 mg/dL (70-99) Calcium Level 8.9 mg/dL (8.5-10.1) Total Bilirubin 0.5 mg/dL (0.2-1.0) Aspartate Amino Transf (AST/SGOT) 7 U/L (15-37) Alanine Aminotransferase (ALT/SGPT) 42 U/L (14-59) Alkaline Phosphatase 101 U/L (46-116) Total Protein 7.1 g/dL (6.4-8.2) Albumin 2.6 g/dL (3.4-5.0) Albumin/Globulin Ratio 0.6 (1.0-1.7) Microbiology 03/29/21 Blood Culture - Final, Complete NO GROWTH AFTER 5 DAYS Medications Current Medications Acetaminophen (Tylenol) 1,000 mg 1X ONCE PO Last administered on 03/29/21at 20:58; Start 03/29/21 at 19:15; Stop 03/29/21 at 19:22; Status DC Ibuprofen (Motrin) 600 mg 1X ONCE PO ; Start 03/29/21 at 19:15; Stop 03/29/21 at 19:22; Status DC Azithromycin (Zithromax) 500 mg 1X ONCE PO Last administered on 03/29/21at 20:58; Start 03/29/21 at 20:30; Stop 03/29/21 at 20:31; Status DC Ketorolac Tromethamine (Toradol 30mg Vial) 30 mg 1X ONCE IVP Last administered on 03/29/21at 20:58; Start 03/29/21 at 20:30; Stop 03/29/21 at 20:31; Status DC Acetaminophen (Tylenol) 1,000 mg 1X ONCE PO ; Start 03/29/21 at 20:30; Stop 03/29/21 at 20:53; Status DC Amoxicillin (Amoxil) 1,000 mg 1X ONCE PO ; Start 03/29/21 at 21:30; Stop 03/29/21 at 21:34; Status DC Iohexol (Omnipaque 350 Mg/ml) 100 ml 1X ONCE IV Last administered on 03/29/21at 22:35; Start 03/29/21 at 22:15; Stop 03/29/21 at 22:16; Status DC Info (CONTRAST GIVEN -- Rx MONITORING) 1 each PRN DAILY PRN MC SEE COMMENTS; Start 03/29/21 at 22:15; Stop 03/31/21 at 22:14; Status DC Ceftriaxone Sodium (Rocephin) 2 gm 1X ONCE IVP Last administered on 03/29/21at 23:03; Start 03/29/21 at 22:30; Stop 03/29/21 at 22:31; Status DC Ondansetron HCl (Zofran) 4 mg PRN Q6HRS PRN IVP NAUSEA/VOMITING; Start 03/30/21 at 11:00 Calcium Carbonate/ Glycine (Tums) 500 mg PRN Q3HRS PRN PO UPSET STOMACH; Start 03/30/21 at 11:00 Zolpidem Tartrate (Ambien) 5 mg PRN QHS PRN PO INSOMNIA, MAY REPEAT IN 1HR; Start 03/30/21 at 11:00 Info (Non-Icu Electrolyte Protocol) 1 ea PRN DAILY PRN MC SEE COMMENTS; Start 03/30/21 at 11:00 Oxycodone/ Acetaminophen (Percocet 5/325) 1 tab PRN Q4HRS PRN PO MILD PAIN, 1ST CHOICE; Start 03/30/21 at 11:00 Oxycodone/ Acetaminophen (Percocet 5/325) 2 tab PRN Q4HRS PRN PO MODERATE PAIN, SEVERE PAIN; Start 03/30/21 at 11:00 Acetaminophen (Tylenol) 650 mg PRN Q6HRS PRN PO Headaches, Temp > 101.5F; Start 03/30/21 at 11:00 Senna/Docusate Sodium (Senna Plus) 1 tab BID PO Last administered on 04/04/21at 21:42; Start 03/30/21 at 12:00 Heparin Sodium (Porcine) (Heparin Sodium) 5,000 unit Q8HRS SQ Last administered on 04/05/21 05:44; Start 03/30/21 at 12:00 Dexamethasone Sodium Phosphate (Decadron) 6 mg DAILY IVP Last administered on 04/04/21at 08:48; Start 03/30/21 at 11:15; Stop 04/09/21 at 09:01 Piperacillin Sod/ Tazobactam Sod (Zosyn Per Pharmacy) 1 each PRN DAILY PRN MC SEE COMMENTS; Start 03/30/21 at 11:15 Guaifenesin/ Codeine Phosphate (Robitussin Ac) 5 ml PRN Q6HRS PRN PO COUGH Last administered on 04/01/21at 20:38; Start 03/30/21 at 11:15 Azithromycin (Zithromax) 500 mg 1X ONCE PO Last administered on 03/30/21at 11:48; Start 03/30/21 at 11:15; Stop 03/30/21 at 11:27; Status DC Azithromycin (Zithromax) 250 mg DAILY PO Last administered on 04/03/21at 08:34; Start 03/31/21 at 09:00; Stop 04/03/21 at 09:01; Status DC Albuterol/ Ipratropium (Combivent Respimat 20-100 Mcg) 2 puff PRN Q4HRS PRN INH WHEEZING Last administered on 03/31/21at 15:00; Start 03/30/21 at 11:30 Piperacillin Sod/ Tazobactam Sod 3.375 gm/Sodium Chloride 50 ml @ 100 mls/hr Q6HRS IV Last administered on 04/05/21at 05:47; Start 03/30/21 at 12:00 Remdesivir 200 mg/ Sodium Chloride 210 ml @ 210 mls/hr 1X ONCE IV Last administered on 03/30/21at 16:16; Start 03/30/21 at 15:00; Stop 03/30/21 at 15:59; Status DC Remdesivir 100 mg/ Sodium Chloride 230 ml @ 460 mls/hr Q24H IV Last administered on 04/03/21at 14:53; Start 03/31/21 at 15:00; Stop 04/03/21 at 15:29; Status DC Lactobacillus Rhamnosus (Culturelle) 1 cap BID PO Last administered on 04/04/21at 21:42; Start 03/31/21 at 21:00 Amlodipine Besylate (Norvasc) 5 mg 1X ONCE PO Last administered on 03/31/21at 12:49; Start 03/31/21 at 12:30; Stop 03/31/21 at 12:32; Status DC Multivitamins (Thera M Plus) 1 tab DAILY PO Last administered on 04/04/21at 08:48; Start 04/01/21 at 09:00 Aspirin (WindSim Aspirin) 81 mg 1X ONCE PO Last administered on 03/31/21at 12:49; Start 03/31/21 at 12:30; Stop 03/31/21 at 12:32; Status DC Amlodipine Besylate (Norvasc) 5 mg DAILY PO Last administered on 04/04/21at 08:48; Start 04/01/21 at 09:00 Aspirin (WindSim Aspirin) 81 mg DAILY PO Last administered on 04/04/21at 08:48; Start 04/01/21 at 09:00 Glipizide (Glucotrol) 5 mg BIDBFRMEAL PO Last administered on 04/05/21at 07:45; Start 04/02/21 at 16:30 Insulin Human Lispro (HumaLOG) 0-5 UNITS TIDWMEALS SQ Last administered on 04/05/21at 08:11; Start 04/04/21 at 12:30 Dextrose (Dextrose 50%-Water Syringe) 12.5 gm PRN Q15MIN PRN IV SEE COMMENTS; Start 04/04/21 at 12:00 Insulin Human Lispro (HumaLOG) 10 units 1X ONCE SQ Last administered on 04/04/21at 17:28; Start 04/04/21 at 17:30; Stop 04/04/21 at 17:31; Status DC Insulin Human Lispro (HumaLOG) 12 units 1X ONCE SQ Last administered on 04/04/21at 21:44; Start 04/04/21 at 21:30; Stop 04/04/21 at 21:31; Status DC Vitals/I & O Vital Sign - Last 24 Hours 04/04/21 04/04/21 04/04/21 04/04/21 11:00 15:00 19:00 19:30 Temp 98.6 98.3 97.6 98.6 98.3 97.6 Pulse 60 87 51 Resp 22 20 20 B/P (MAP) 121/70 (87) 132/63 (86) 128/52 (77) Pulse Ox 95 92 97 O2 Delivery Nasal Cannula Room Air Nasal Cannula Room Air O2 Flow Rate 4.0 4.0 04/04/21 04/05/21 04/05/21 04/05/21 23:00 03:00 07:00 07:45 Temp 97.4 97.7 97.8 97.4 97.7 97.8 Pulse 51 51 50 Resp 20 20 18 B/P (MAP) 113/62 (79) 154/64 (94) 134/74 (94) Pulse Ox 97 99 100 O2 Delivery Nasal Cannula Nasal Cannula Nasal Cannula Room Air O2 Flow Rate 4.0 4.0 4.0 Intake and Output 04/04/21 04/04/21 04/05/21 15:00 23:00 07:00 Intake Total 250 ml Balance 250 ml Justicifation of Admission Dx: Justifications for Admission: Justification of Admission Dx: Yes Comminuty Aquired Pneumonia: Hypoxemia ALEKSANDAR STONE MD Apr 05, 2021 08:50
[2021-04-05] MEDS: MULTIVITAMIN with MINERAL TABLET. PO SCH (09:34)
[2021-04-05] MEDS: LACTOBACILLUS RHAMNOSUS GG 1 CAPSULE. PO SCH (09:35)
[2021-04-05] MEDS: ASPIRIN 325 MG TABLET PO SCH (09:35)
[2021-04-05] MEDS: SENNOSIDES/DOCUSATE 8.6/50MG TABLET. PO SCH (09:35)
[2021-04-05] MEDS: DEXAMETHASONE SOD PHOS 4 MG/ML VIAL IVP SCH (09:35)
[2021-04-05 10:38] VITALS: BP 146/66
--- NOTE | 2021-04-05 12:50 | PDOC3 ---
Discharge Summary Date of Admission: Mar 29, 2021 Date of Discharge: Apr 05, 2021 Follow-Up: 3-5 days Admitting Diagnosis comment: History of Present Illness History of Present Illness Patient is a 60-year-old female presented to the emergency department overnight due to shortness of breath and back pain. Patient reports respiratory symptoms have been going on for about a week, she also endorses having diarrhea. Patient does not speak [place]. Uncertain if she has had a fever but has had chills at home and overall fatigue. Does not know any Covid contacts. Did not receive Covid vaccine. Covid positive in emergency room. Required 3L O2 per nasal cannula in the ED. Lab work in emergency room overall unremarkable other than Covid positive. CT scan emergency room ruled out pulmonary embolism. However findings consistent with infiltrate D./C CONDITION GOOD SEE YOUR PCP IN 3-7 DAYS COMPLICATIONS NONE DISCHARGE DX Chief Complaint COVID-19 Infection (experienced shortness of breath) Pneumonia secondary to COVID-19 with possible superimposed bacterial pneumonia Benign hepatic mass History of Present Illness History of Present Illness Patient is a 60-year-old female presented to the emergency department overnight due to shortness of breath and back pain. Patient reports respiratory symptoms have been going on for about a week, she also endorses having diarrhea. Patient does not speak [place]. Uncertain if she has had a fever but has had chills at home and overall fatigue. Does not know any Covid contacts. Did not receive Covid vaccine. Covid positive in emergency room. Required 3L O2 per nasal cannula in the ED. Lab work in emergency room overall unremarkable other than Covid positive. CT scan emergency room ruled out pulmonary embolism. However findings consistent with infiltrate. 03/31: Patient seen and examined. Blood pressure has been elevated since admission (144/67-173/79). Respiration rate has also been elevated (18-32). Discussed with RN. CHart reviewed. 04/01: Patient seen and examined. Discussed with RN. Chart reviewed. Patient endorses improvement in symptoms (no pain, no diarrhea, minimal cough). She reports sleeping well and good appetite. O2 requirements decreased from 4.5L to 4.0L per nasal cannula. 04/02: Patient seen and examined. Discussed with RN. Chart reviewed. Patient endorses feeling well with no pain and a minor cough. Blood glucose 303. O2 requirements continue to be 4L O2 per nasal cannula. Hope to discharge when O2 requirements decrease. 04/03: Patient seen and examined. Discussed with RN. Chart reviewed. Patient endorses she feels well. She denies pain. Patient still requiring 4L O2 per nasal cannula. 04/04: seen and examined. Discussed with RN. Chart reviewed. denies pain. still requiring 4L O2 per nasal cannula. 04/05 seen and examined. Discussed with RN. Chart reviewed. denies pain. ON ROOM AIR HOME TODAY D/C PLANNING 37 MIN Vitals Vitals Vital Signs Date Time Temp Pulse Resp B/P (MAP) Pulse Ox O2 Delivery O2 Flow Rate FiO2 04/05/21 07:45 Room Air 04/05/21 07:00 97.8 50 18 134/74 (94) 100 4.0 97.8 Physical Exam General: Alert, Oriented X3, Cooperative, No acute distress Heart: Regular rate, Normal S1, Normal S2 Lungs: Clear, Other (Coarse breath sounds) Abdomen: Normal bowel sounds, Soft Extremities: No clubbing, No cyanosis Skin: No rashes Brief Hospital Course Ms. Nieto is a 60 old [sex] who presented with [ COVID PNEUMONIA] CONDITION AT DISCHARGE: Improved Discharge Medications Current Medications Acetaminophen (Tylenol) 1,000 mg 1X ONCE PO Last administered on 03/29/21at 20:58; Start 03/29/21 at 19:15; Stop 03/29/21 at 19:22; Status DC Ibuprofen (Motrin) 600 mg 1X ONCE PO ; Start 03/29/21 at 19:15; Stop 03/29/21 at 19:22; Status DC Azithromycin (Zithromax) 500 mg 1X ONCE PO Last administered on 03/29/21at 20:58; Start 03/29/21 at 20:30; Stop 03/29/21 at 20:31; Status DC Ketorolac Tromethamine (Toradol 30mg Vial) 30 mg 1X ONCE IVP Last administered on 03/29/21at 20:58; Start 03/29/21 at 20:30; Stop 03/29/21 at 20:31; Status DC Acetaminophen (Tylenol) 1,000 mg 1X ONCE PO ; Start 03/29/21 at 20:30; Stop 03/29/21 at 20:53; Status DC Amoxicillin (Amoxil) 1,000 mg 1X ONCE PO ; Start 03/29/21 at 21:30; Stop 03/29/21 at 21:34; Status DC Iohexol (Omnipaque 350 Mg/ml) 100 ml 1X ONCE IV Last administered on 03/29/21at 22:35; Start 03/29/21 at 22:15; Stop 03/29/21 at 22:16; Status DC Info (CONTRAST GIVEN -- Rx MONITORING) 1 each PRN DAILY PRN MC SEE COMMENTS; Start 03/29/21 at 22:15; Stop 03/31/21 at 22:14; Status DC Ceftriaxone Sodium (Rocephin) 2 gm 1X ONCE IVP Last administered on 03/29/21at 23:03; Start 03/29/21 at 22:30; Stop 03/29/21 at 22:31; Status DC Ondansetron HCl (Zofran) 4 mg PRN Q6HRS PRN IVP NAUSEA/VOMITING; Start 03/30/21 at 11:00 Calcium Carbonate/ Glycine (Tums) 500 mg PRN Q3HRS PRN PO UPSET STOMACH; Start 03/30/21 at 11:00 Zolpidem Tartrate (Ambien) 5 mg PRN QHS PRN PO INSOMNIA, MAY REPEAT IN 1HR; Start 03/30/21 at 11:00 Info (Non-Icu Electrolyte Protocol) 1 ea PRN DAILY PRN MC SEE COMMENTS; Start 03/30/21 at 11:00 Oxycodone/ Acetaminophen (Percocet 5/325) 1 tab PRN Q4HRS PRN PO MILD PAIN, 1ST CHOICE; Start 03/30/21 at 11:00 Oxycodone/ Acetaminophen (Percocet 5/325) 2 tab PRN Q4HRS PRN PO MODERATE PAIN, SEVERE PAIN; Start 03/30/21 at 11:00 Acetaminophen (Tylenol) 650 mg PRN Q6HRS PRN PO Headaches, Temp > 101.5F; Start 03/30/21 at 11:00 Senna/Docusate Sodium (Senna Plus) 1 tab BID PO Last administered on 04/05/21at 09:35; Start 03/30/21 at 12:00 Heparin Sodium (Porcine) (Heparin Sodium) 5,000 unit Q8HRS SQ Last administered on 04/05/21 05:44; Start 03/30/21 at 12:00 Dexamethasone Sodium Phosphate (Decadron) 6 mg DAILY IVP Last administered on 04/05/21at 09:35; Start 03/30/21 at 11:15; Stop 04/09/21 at 09:01 Piperacillin Sod/ Tazobactam Sod (Zosyn Per Pharmacy) 1 each PRN DAILY PRN MC SEE COMMENTS; Start 03/30/21 at 11:15 Guaifenesin/ Codeine Phosphate (Robitussin Ac) 5 ml PRN Q6HRS PRN PO COUGH Last administered on 04/01/21at 20:38; Start 03/30/21 at 11:15 Azithromycin (Zithromax) 500 mg 1X ONCE PO Last administered on 03/30/21at 11:48; Start 03/30/21 at 11:15; Stop 03/30/21 at 11:27; Status DC Azithromycin (Zithromax) 250 mg DAILY PO Last administered on 04/03/21at 08:34; Start 03/31/21 at 09:00; Stop 04/03/21 at 09:01; Status DC Albuterol/ Ipratropium (Combivent Respimat 20-100 Mcg) 2 puff PRN Q4HRS PRN INH WHEEZING Last administered on 03/31/21at 15:00; Start 03/30/21 at 11:30 Piperacillin Sod/ Tazobactam Sod 3.375 gm/Sodium Chloride 50 ml @ 100 mls/hr Q6HRS IV Last administered on 04/05/21at 12:08; Start 03/30/21 at 12:00 Remdesivir 200 mg/ Sodium Chloride 210 ml @ 210 mls/hr 1X ONCE IV Last administered on 03/30/21at 16:16; Start 03/30/21 at 15:00; Stop 03/30/21 at 15:59; Status DC Remdesivir 100 mg/ Sodium Chloride 230 ml @ 460 mls/hr Q24H IV Last administered on 04/03/21at 14:53; Start 03/31/21 at 15:00; Stop 04/03/21 at 15:29; Status DC Lactobacillus Rhamnosus (Culturelle) 1 cap BID PO Last administered on 04/05/21at 09:35; Start 03/31/21 at 21:00 Amlodipine Besylate (Norvasc) 5 mg 1X ONCE PO Last administered on 03/31/21at 12:49; Start 03/31/21 at 12:30; Stop 03/31/21 at 12:32; Status DC Multivitamins (Thera M Plus) 1 tab DAILY PO Last administered on 04/05/21 09:34; Start 04/01/21 at 09:00 Aspirin (Emergent One Aspirin) 81 mg 1X ONCE PO Last administered on 03/31/21at 12:49; Start 03/31/21 at 12:30; Stop 03/31/21 at 12:32; Status DC Amlodipine Besylate (Norvasc) 5 mg DAILY PO Last administered on 04/05/21 09:35; Start 04/01/21 at 09:00 Aspirin (Steve Aspirin) 81 mg DAILY PO Last administered on 04/05/21at 09:35; Start 04/01/21 at 09:00 Glipizide (Glucotrol) 5 mg BIDBFRMEAL PO Last administered on 04/05/21at 07:45; Start 04/02/21 at 16:30 Insulin Human Lispro (HumaLOG) 0-5 UNITS TIDWMEALS SQ Last administered on 04/05/21at 12:13; Start 04/04/21 at 12:30 Dextrose (Dextrose 50%-Water Syringe) 12.5 gm PRN Q15MIN PRN IV SEE COMMENTS; Start 04/04/21 at 12:00 Insulin Human Lispro (HumaLOG) 10 units 1X ONCE SQ Last administered on 04/04/21at 17:28; Start 04/04/21 at 17:30; Stop 04/04/21 at 17:31; Status DC Insulin Human Lispro (HumaLOG) 12 units 1X ONCE SQ Last administered on 04/04/21at 21:44; Start 04/04/21 at 21:30; Stop 04/04/21 at 21:31; Status DC Vital Signs Vital Signs Date Time Temp Pulse Resp B/P (MAP) Pulse Ox O2 Delivery O2 Flow Rate FiO2 04/05/21 10:38 98.0 51 18 146/66 (92) 96 Nasal Cannula 4.0 98.0 Labs Laboratory Tests Test 04/04/21 07:54 04/04/21 11:51 04/04/21 15:50 04/04/21 17:14 Glucose (Fingerstick) 278 mg/dL (70-99) 340 mg/dL (70-99) 389 mg/dL (70-99) Ferritin 641 ng/mL (8-252) C-Reactive Protein, Quantitative 14.9 mg/L (0-3.3) Test 04/04/21 19:15 04/04/21 20:13 04/04/21 23:22 04/05/21 06:30 Glucose (Fingerstick) 456 mg/dL (70-99) 455 mg/dL (70-99) 368 mg/dL (70-99) White Blood Count 7.7 x10^3/uL (4.0-11.0) Red Blood Count 4.67 x10^6/uL (3.50-5.40) Hemoglobin 14.2 g/dL (12.0-15.5) Hematocrit 41.0 % (36.0-47.0) Mean Corpuscular Volume 88 fL (79-100) Mean Corpuscular Hemoglobin 30 pg (25-35) Mean Corpuscular Hemoglobin Concent 35 g/dL (31-37) Red Cell Distribution Width 13.6 % (11.5-14.5) Platelet Count 508 x10^3/uL (140-400) Neutrophils (%) (Auto) 79 % (31-73) Lymphocytes (%) (Auto) 14 % (24-48) Monocytes (%) (Auto) 7 % (0-9) Eosinophils (%) (Auto) 0 % (0-3) Basophils (%) (Auto) 0 % (0-3) Neutrophils # (Auto) 6.0 x10^3/uL (1.8-7.7) Lymphocytes # (Auto) 1.1 x10^3/uL (1.0-4.8) Monocytes # (Auto) 0.5 x10^3/uL (0.0-1.1) Eosinophils # (Auto) 0.0 x10^3/uL (0.0-0.7) Basophils # (Auto) 0.0 x10^3/uL (0.0-0.2) Sodium Level 136 mmol/L (136-145) Potassium Level 4.1 mmol/L (3.5-5.1) Chloride Level 101 mmol/L (98-107) Carbon Dioxide Level 31 mmol/L (21-32) Anion Gap 4 (6-14) Blood Urea Nitrogen 16 mg/dL (7-20) Creatinine 0.7 mg/dL (0.6-1.0) Estimated GFR (Cockcroft-Gault) 85.6 BUN/Creatinine Ratio 23 (6-20) Glucose Level 240 mg/dL (70-99) Calcium Level 8.9 mg/dL (8.5-10.1) Total Bilirubin 0.5 mg/dL (0.2-1.0) Aspartate Amino Transf (AST/SGOT) 7 U/L (15-37) Alanine Aminotransferase (ALT/SGPT) 42 U/L (14-59) Alkaline Phosphatase 101 U/L (46-116) Total Protein 7.1 g/dL (6.4-8.2) Albumin 2.6 g/dL (3.4-5.0) Albumin/Globulin Ratio 0.6 (1.0-1.7) Test 04/05/21 07:23 04/05/21 11:59 Glucose (Fingerstick) 242 mg/dL (70-99) 353 mg/dL (70-99) Laboratory Tests Test 04/04/21 15:50 04/04/21 17:14 04/04/21 19:15 04/04/21 20:13 Ferritin 641 ng/mL (8-252) C-Reactive Protein, Quantitative 14.9 mg/L (0-3.3) Glucose (Fingerstick) 389 mg/dL (70-99) 456 mg/dL (70-99) 455 mg/dL (70-99) Test 04/04/21 23:22 04/05/21 06:30 04/05/21 07:23 04/05/21 11:59 Glucose (Fingerstick) 368 mg/dL (70-99) 242 mg/dL (70-99) 353 mg/dL (70-99) White Blood Count 7.7 x10^3/uL (4.0-11.0) Red Blood Count 4.67 x10^6/uL (3.50-5.40) Hemoglobin 14.2 g/dL (12.0-15.5) Hematocrit 41.0 % (36.0-47.0) Mean Corpuscular Volume 88 fL (79-100) Mean Corpuscular Hemoglobin 30 pg (25-35) Mean Corpuscular Hemoglobin Concent 35 g/dL (31-37) Red Cell Distribution Width 13.6 % (11.5-14.5) Platelet Count 508 x10^3/uL (140-400) Neutrophils (%) (Auto) 79 % (31-73) Lymphocytes (%) (Auto) 14 % (24-48) Monocytes (%) (Auto) 7 % (0-9) Eosinophils (%) (Auto) 0 % (0-3) Basophils (%) (Auto) 0 % (0-3) Neutrophils # (Auto) 6.0 x10^3/uL (1.8-7.7) Lymphocytes # (Auto) 1.1 x10^3/uL (1.0-4.8) Monocytes # (Auto) 0.5 x10^3/uL (0.0-1.1) Eosinophils # (Auto) 0.0 x10^3/uL (0.0-0.7) Basophils # (Auto) 0.0 x10^3/uL (0.0-0.2) Sodium Level 136 mmol/L (136-145) Potassium Level 4.1 mmol/L (3.5-5.1) Chloride Level 101 mmol/L (98-107) Carbon Dioxide Level 31 mmol/L (21-32) Anion Gap 4 (6-14) Blood Urea Nitrogen 16 mg/dL (7-20) Creatinine 0.7 mg/dL (0.6-1.0) Estimated GFR (Cockcroft-Gault) 85.6 BUN/Creatinine Ratio 23 (6-20) Glucose Level 240 mg/dL (70-99) Calcium Level 8.9 mg/dL (8.5-10.1) Total Bilirubin 0.5 mg/dL (0.2-1.0) Aspartate Amino Transf (AST/SGOT) 7 U/L (15-37) Alanine Aminotransferase (ALT/SGPT) 42 U/L (14-59) Alkaline Phosphatase 101 U/L (46-116) Total Protein 7.1 g/dL (6.4-8.2) Albumin 2.6 g/dL (3.4-5.0) Albumin/Globulin Ratio 0.6 (1.0-1.7) Allergies Allergies Coded Allergies Type Severity Reaction Last Updated Verified No Known Drug Allergies 06/18/20 No Disposition/Orders: D/C to Home Justicifation of Admission Dx: Justifications for Admission: Justification of Admission Dx: Yes Comminuty Aquired Pneumonia: Hypoxemia ALEKSANDAR STONE MD Apr 05, 2021 12:50
[2021-04-05] MEDS ORDERED: AMLO-186 PO (12:56)
[2021-04-05] MEDS ORDERED: ASPI325T8 PO (12:56)
[2021-04-05] MEDS ORDERED: HEPA50003 SQ (12:56)
[2021-04-05] MEDS ORDERED: IPRA4AER INH (12:56)
[2021-04-05] MEDS ORDERED: MULT1TAB92 PO (12:56)
[2021-04-05] MEDS ORDERED: INSU100V35 SQ (12:56)
[2021-04-05] MEDS ORDERED: ACET325T21 PO (12:56)
[2021-04-05] MEDS ORDERED: LACT1CAP19 PO (12:56)
[2021-04-05] MEDS ORDERED: GLIP5TAB10 PO (12:56)
[2021-04-05] MEDS ORDERED: AMOX1TAB61 PO (12:56)
[2021-04-05] MEDS ORDERED: DEXA6TAB6 PO (12:57)
--- NOTE | 2021-04-05 12:58 | DISCH ---
DISCHARGE INSTRUCTIONS Condition on Discharge Condition on Discharge: Stable Activity After Discharge Activity Instructions for Disc: Activity as tolerated Lifting Instructions after Dis: No heavy lifting, No pulling or pushing Driving Instructions after Dis: Do not drive Diet after Discharge Diet after Discharge: Diabetic No Calorie Level Liquid Texture: Thin Liquid Checks after Discharge Checks after discharge: Check blood press - daily Contacting the DRRay after DC Call your doctor for: If your condition worsens Follow-Up Follow up with: SEE YOUR PCP IN 3 TO 7 DAYS ALEKSANDAR STONE MD Apr 05, 2021 12:58
[2021-04-05 15:00] VITALS: BP 114/60
--- NOTE | 2021-04-05 15:01 | NUR ---
SW following. Discussed with RN, pt completed 6 minute walk, does not require oxygen at home. Discharge order for home with self care. COVID-19 positive.
--- NOTE | 2021-04-05 17:50 | NUR ---
Discharge Note: BRITTNY DALY Discharge instructions and discharge home medications reviewed with Patient and a copy given. All questions have been answered and understanding verbalized. The following instructions and handouts were given: discharge instructions, new prescriptions, education and follow up recommendations. Discontinued lines and drains: Peripheral IV discontinued intact. Patient discharged to Home or Self Care with Family Member via Wheelchair off unit by [employer].
== END 2021-04-05 17:50 | disposition home or self-care (01) | DRG 177 ==
LOC: ER 15:29 → ED HOLD 23:00 → 5 NORTH 03-30 00:22
PROVIDERS: ADMIT Student in an Organized Health Care Education/Training Program; ATTEND Student in an Organized Health Care Education/Training Program
PROC: XW033E5 Introduction of Remdesivir Anti-infective into Peripheral Vein, Percutaneous Approach, New Technology Group 5 (ICD-10-PCS; principal; 2021-03-30)
DX: U07.1 COVID-19 (principal); J12.82 Pneumonia due to coronavirus disease 2019; J15.9 Unspecified bacterial pneumonia; R16.0 Hepatomegaly, not elsewhere classified
CPT/HCPCS: 36415; 71045; 71275; 80053; 81001; 82553; 82728; 82962; 83605; 83735; 83880; 84100; 84484; 85025; 85379; 86140; 87040; 93005; 94618; 96374; 96375; J0696; J1100; J1644; J1815; J1885; J2543; J7050; Q9967; U0003; U0005; 99285-25; G0378; J7030